=== PATIENT | male | born 1990 | race Caucasian/White ===

== ENCOUNTER 2021-08-29 12:38 | Inpatient (IN) | payer MEDICAID, OTHER, SELFPAY ==
--- NOTE | ~2021-08-29 | CT_ITS ---
EXAMINATION: CT CHEST, ABDOMEN AND PELVIS WITHOUT CONTRAST CLINICAL INFORMATION: Chest pain, abdominal pain and tachycardia. COMPARISON: CT abdomen/pelvis dated from 12/17/2018. TECHNIQUE: Multidetector volumetric imaging was performed from the thoracic inlet through the pubic symphysis without intravenous contrast. Sagittal and coronal reformatted images were obtained on the technologist's workstation. This CT examination was performed using dose optimization techniques as appropriate, variously including the following: *Automated exposure control *Adjustment of mA and/or kV according to patient size (this includes techniques or standardized protocols for targeted exams where dose is matched to indication/reason for exam; i.e. extremities or head) *Use of iterative reconstruction technique DLP: 659 mGy-cm FINDINGS: CHEST: Lung: There is an indeterminate 0.5 cm groundglass nodule in the left upper lobe (7:155). There are also subtle groundglass opacities to the left of the anterior mediastinum reflection 8 the left upper lobe, for example as identified on images 211 and 221 of series 7, possibly related with subsegmental atelectasis. Otherwise, the lungs are clear. Mediastinum: Normal heart size. No pericardial effusion. No mediastinal or hilar lymphadenopathy. Normal appearance of the thyroid gland. Pericardium/Pleura: No significant effusion. No pleural mass or thickening. Chest Wall/Axilla: Mild bilateral gynecomastia. ABDOMEN/PELVIS: Peritoneal Space:No significant free air or free fluid identified. Liver, Gallbladder, Biliary Tree: There is decreased hepatic parenchymal attenuation most consistent with hepatic steatosis. Otherwise, the noncontrast liver is normal in size and shape without focal lesions. The gallbladder is unremarkable with no evidence of radiopaque gallstones, gallbladder wall thickening, or obvious pericholecystic inflammatory changes. Pancreas: No focal abnormalities. The main pancreatic duct is nondilated. There is no peripancreatic free fluid or fat stranding. Spleen: Unremarkable. Adrenal Glands: Unremarkable. Kidneys and Ureters: The kidneys are normal in size, shape, and attenuation. No hydronephrosis, hydroureter, or calculi seen. No perinephric stranding. Bladder: Partially under distended without focal abnormalities or significant perivesical fat stranding. Gastrointestinal Tract: There is wall thickening of the lower esophagus. The stomach and the small bowel are nondilated. Normal appendix. No active inflammatory bowel changes or evidence of bowel obstruction. Abdominal Wall: Small bilateral fat-containing internal hernias. Lymphovascular Structures: A few prominent periportal lymph nodes measuring up to 0.7 cm in maximum short axis are indeterminate but likely reactive in the setting of hepatic steatosis. There is also a prominent periesophageal lymph node measuring 0.8 cm on image 48 of series 5. There is no lymphadenopathy by size criteria. The aorta is unremarkable.. Pelvic Viscera: Unremarkable. Osseus Structures: No acute or aggressive osseous abnormalities. CT/CT abdomen pelvis wo con IMPRESSION: There is wall thickening of the lower esophagus with a prominent periesophageal lymph node. Correlation with esophagitis or reflux disease should be obtained and if indicated further evaluation with an upper enteroscopy could be obtained. Hepatic steatosis. Indeterminate groundglass nodule in the left upper lobe. Patient is younger than 35 years old therefore Fleischner criteria do not apply. If clinically indicated, consider a short-term follow-up to ensure resolution of this finding.
[2021-08-29 12:41] VITALS: BP 144/93; PULSE 150; RESP 22; TEMP 36.8; O2SAT 93
--- NOTE | 2021-08-29 12:52 | ED.ALCOHOL ---
HPI - Alcohol General Chief Complaint: ETOH/Substance Use <THO Solano - Last Filed: 08/29/21 21:45> Stated Complaint: ETOH USE, HIGH BP 170/110, HIGH HR 160 PER EMS <THO Solano - Last Filed: 08/29/21 21:45> Time Seen by Provider: 08/29/21 12:48 <THO Solano - Last Filed: 08/29/21 21:45> Source: patient <THO Solano - Last Filed: 08/29/21 21:45> Mode of arrival: EMS <THO Solano - Last Filed: 08/29/21 21:45> Limitations: other (intoxicated poor historian.) <THO Solano - Last Filed: 08/29/21 21:45> History of Present Illness HPI narrative: This is a 31-year-old male past medical history significant for alcohol use with order with history of alcohol withdrawal seizures presenting to the emergency department with acute alcohol intoxication. According to EMS patient was found with a pt of vodka at his side, he was drinking. Patient is unable to tell us how much he is drink, he tells me he drinks every day until he passes out, he usually drinks hard liquor not beer. He tells me is trying to stop drinking, he is tearful. He has no complaints at this time other than he feels like his heart is racing. Patient does 9 I's suicidal ideation and homicidal ideation. He denies visual, auditory and tactile hallucinations. Denies chest pain, shortness of breath, fevers, chills, nausea, vomiting, abdominal pain, weakness, vision changes, headache . <THO Solano - Last Filed: 08/29/21 21:45> MD complaint: alcohol intoxication, alcohol dependence and desires rehab <THO Solano - Last Filed: 08/29/21 21:45> Last drink: Unknown <THO Solano - Last Filed: 08/29/21 21:45> Chronic alcohol use: Yes <THO Solano - Last Filed: 08/29/21 21:45> Previous visits for alcohol intoxication: Yes <THO Solano Last Filed: 08/29/21 21:45> Recent trauma: No <THO Solano Last Filed: 08/29/21 21:45> Associated symptoms: other (palpiations ) <THO Solano Last Filed: 08/29/21 21:45> Treatments prior to arrival: none <THO Solano Last Filed: 08/29/21 21:45> Related Data Home Medications: Home Medications Medication Instructions Recorded Confirmed escitalopram oxalate 10 mg tablet 1 tab PO DAILY 08/29/21 08/29/21 gabapentin 100 mg capsule 1 cap PO TID 08/29/21 08/29/21 hydroxyzine pamoate 50 mg capsule 1 cap PO TID 08/29/21 08/29/21 losartan 25 mg tablet 1 tab PO DAILY 08/29/21 08/29/21 metoprolol succinate 50 mg 1 tab PO DAILY 08/29/21 08/29/21 tablet,extended release 24 hr nicotine 21 mg/24 hr daily 1 patch TOPICAL DAILY 08/29/21 08/29/21 transdermal patch pantoprazole 40 mg tablet,delayed 1 tab PO BID 08/29/21 08/29/21 release <TOH Solano Last Filed: 08/29/21 21:45> Allergies/Adverse Reactions: Allergies Allergy/AdvReac Type Severity Reaction Status Date / Time oxycodone [OXYCODONE] Allergy Unknown RASH Verified 08/29/21 19:06 Seasonale Allergy Unknown Sneezing Uncoded 08/29/21 19:06 <THO Solano Last Filed: 08/29/21 21:45> Review of Systems Review of Systems: Constitutional : No Fever, No Chills ENT/Mouth : No sore throat, No Rhinorrhea Eyes: No Eye Pain, No Swelling, No Redness Cardiovascular : No Chest Pain, No SOB, + palpitations Respiratory : No Cough, No Sputum Gastrointestinal : No Nausea, No Vomiting, No Diarrhea, No abdominal Pain Genitourinary : No Dysuria, No Hematuria Musculoskeletal : No joint pain, No Myalgias, No Joint Swelling Skin : No Skin Lesions, No rash Neuro : No Weakness, No Numbness Psych : No Anxiety, No Depression, No SI/HI/AH/VH Heme/Lymph: No Bruising, No Bleeding Endocrine : No Polyuria, No Polydipsia All other systems reviewed and are negative <THO Solano - Last Filed: 08/29/21 21:45> Yes all other systems are reviewed and are negative <THO Solano - Last Filed: 08/29/21 21:45> FORMERLY [facility], [facility] Past Medical History Attestation statement: The following information was validated with the patient. <THO Solano - Last Filed: 08/29/21 21:45> Source: old records reviewed and nursing notes reviewed <THO Solano - Last Filed: 08/29/21 21:45> Medical History: Medical History (Updated 08/29/21 @ 20:14 by THO Solano) Congestive cardiomyopathy <THO Solano - Last Filed: 08/29/21 21:45> Social History Social History: Social History Advance Directives: No Advance Directives Information Provided: Yes <THO Solano - Last Filed: 08/29/21 21:45> Physical Exam Vital Signs: Vital Signs: Last Vital Signs Temp 98.4 F 08/29/21 21:47 Pulse 126 H 08/29/21 21:47 Resp 20 08/29/21 21:47 BP 120/70 08/29/21 21:47 Pulse Ox 94 08/29/21 21:47 BMI result Body Mass Index 29.2 Hypertension, tachypnea and tachycardia noted. Likely secondary to acute alcohol intoxication <THO Solano - Last Filed: 08/29/21 21:45> Vital Signs: Last Vital Signs Temp 98.4 F 08/29/21 21:47 Pulse 126 H 08/29/21 21:47 Resp 20 08/29/21 21:47 BP 120/70 08/29/21 21:47 Pulse Ox 94 08/29/21 21:47 BMI result Body Mass Index 29.2 <Rigoberto Girard MD - Last Filed: 08/29/21 22:07> Appearance: Alert.? Oriented X3.? No acute distress.? Patient appears anxious, answering questions slowly, unable to elaborate on my questions. Only answering yes or no questions. Head: Normocephalic, atraumatic, no step-offs or deformities Eyes: Pupils equal, round and reactive to light.? ENT: Pharynx normal.? Tongue with fasciculations Neck: Normal inspection.? Neck supple.? CVS: Normal heart rate and rhythm.? Pulses normal.? Respiratory: No respiratory distress.? Breath sounds normal.? Abdomen: Soft and nontender.? Skin: Skin warm and dry.? Normal skin color.? Normal skin turgor.? Extremities: No lower extremity edema.? No calf ttp. 5/5 strength to bilateral upper and lower extremities. Bilateral upper extremities with a resting tremor. Back: No midline tenderness, no C-spine tenderness, full range of motion, no CVA tenderness bilaterally Neuro: Oriented X 3.? No motor deficit.? No sensory deficit. Patient ambulating with an unsteady gait. <THO Solano - Last Filed: 08/29/21 21:45> Course Reevaluation(s) Reevaluation #1: Phenobarb protocol ordered. <THO Solano Last Filed: 08/29/21 21:45> Time: 16:47 <THO Solano - Last Filed: 08/29/21 21:45> Reevaluation #2: Spoke to curb attendant Dr. Headley who states that there is a normal compensated gas. Likely a mixed metabolic acidosis and metabolic alkalosis. Patient now tells staff that he was vomiting however, he has not vomited here in the emergency department. He also recommends CT of abdomen, chest and pelvis. Added lactic, lipase and serum osms. He did a bedside echo that shows patients EF to be reduced around 35-40%, patient myopathic. Patient now states that he has not been taking his blood pressure medicine. Earlier he told me he was. Lactic 3.3 - likely secondary to alcohol abuse/withdraw. Patient receiving fluids Lipase elevated,could be secondary to alcohol abuse. Patient now reports abdominal pain RUQ likely hepatitis. <THO Solano - Last Filed: 08/29/21 21:45> Time: 18:08 <THO Solano - Last Filed: 08/29/21 21:45> Reevaluation #3: I spent 60 minutes of critical care, with interventions, assessments, speaking to patient, consultants, and family. Patient with alcohol withdrawal and now large osmolar gap, discussed with poison control will transfer to [facility] for renal consult and possible fomiprazole <Rigoberto Girard MD - Last Filed: 08/29/21 22:07> Time: 18:46 <Rigoberto Girard MD - Last Filed: 08/29/21 22:07> Additional Reevaluation(s): 1899 Spoke to poison Control who tell me that they cannot rule out for certain that this is a toxic alcohol ingestion, still on the diagnosis however on likely. They recommend transfer to a center where patient can receive emergent hemodialysis. At this time they are not recommending fomiprazole. They recommend transferring the patient out to a tertiary facility. They also recommend obtaining an ethanol glycol level and ethanol level. These labs will be obtained. I will transfer patient out. Spoke to the curb attendant about this case who also feels more comfortable if patient is transferred to a different facility as this is likely an ingestion of a toxic alcohol. 1923 Reached out to [facility] for transfer, [facility] tells me that they are closed transfers. Call out to [facility] closed to transfers placed on a wait list. Will reach out to [facility] [address] [facility] closed to transfers, will call [facility]. [address] [facility] close to transfers unless it is a STEMI, trauma or peds. I will try [facility] closed for transfer. [facility]. [facility] said closed to transfers. Will reach out to [facility] closed to transfer.Will call [facility] 2005 [facility] said no, closed to transfer 2044 Spoke to who thinks this is unlikely a toxic ingestion. Javy a Lactic Acidosis and Metabolic Alkalosis combined. A nephro consult has been put in. Patient 2123 Per orders of an admit order for ICU will be put in. If patients vitals, labs and presentation improves patient could be evaluated for hospital admission not ICU, however only if significant improvement is noted. Although unlikely. At this time patient tachycardic, and tremulous would like 75 mg of phenobarbital at this time. Have spoken to nursing lathing supervisor, clinical cordinator, ICU PA and Dr. Girard has spoken to who also feels like this patient is not appropriate for the floor. [address] to Dr. Hamlin. Pending CBC,CMP,BNP,VBG,Lactic. Methanol and Ethylene glycol two send out labs peding (Send outs to [facility]) <THO Solano - Last Filed: 08/29/21 21:45> Consultations Consultation #1: still in withdrawal will write for more IV phenobarbital <Rigoberto Girard MD - Last Filed: 08/29/21 22:07> Time: 22:07 <Rigoberto Girard MD - Last Filed: 08/29/21 22:07> MDM - Alcohol MDM Narrative Medical decision making narrative: 1250 This is a 31-year-old male past medical history significant for alcohol use disorder with history of alcohol withdrawal seizures and HTN presenting to the emergency department with acute alcohol intoxication. Patient tells me he is having palpitations but has no other complaints at this time. Patient wants to stop drinking unable to tell me how much she drinks on daily basis. Tells me he drinks every day, hard liquor, until he falls asleep. No visual, auditory or tactile hallucinations. No SI or HI. Physical examination significant for resting tremors to bilateral upper extremities, asterixis of the tongue, regular rapid rhythm noted. Lungs are clear. Abdomen soft nontender nondistended. Injected sclera. Patient is tearful, and anxious at this time. Plan at this time is to administer IV phenobarbital 75 mg, obtain basic labs, ethanol, urine drug tox, UA, EKG since patient is experiencing palpitations. <THO Solano - Last Filed: 08/29/21 21:45> Medical Records Attestation: I reviewed the patient's medical records. <THO Solano - Last Filed: 08/29/21 21:45> Lab Data Attestation: I reviewed the patient's lab results. <THO Solano - Last Filed: 08/29/21 21:45> Result diagrams: : 08/29/21 13:29 08/29/21 13:29 <THO Solano - Last Filed: 08/29/21 21:45> Labs: Lab Results 08/29/21 08/29/21 08/29/21 Range/Units 13:29 13:29 13:29 WBC 5.5 (4.8-10.8) X10*3/uL RBC 5.55 (4.60-5.80) X10*6/uL Hgb 17.1 (14.0-18.0) g/dl Hct 51.0 (42.0-52.0) % MCV 91.9 (80.0-98.0) fL MCH 30.8 (27.0-33.0) pg MCHC 33.5 (31.0-36.0) g/dl RDW 12.9 (11.0-16.0) % Plt Count 347 (160-400) X10*3/uL MPV 8.7 L (9.4-12.4) fL Immature Gran % (Auto) 0.2 (0.0-0.4) % Neut % (Auto) 69.6 (45-73) % Lymph % (Auto) 22.1 (20-40) % Richardson % (Auto) 6.9 (2-11) % Eos % (Auto) 0.5 (0-4) % Baso % (Auto) 0.7 (0-2) % Lymph # (Auto) 1.2 (1.2-4.9) X10*3/uL Richardson # (Auto) 0.4 (0.1-1.2) X10*3/uL Eos # (Auto) 0.0 (0.0-0.4) X10*3/uL Baso # (Auto) 0.0 (0.0-0.2) X10*3/uL Abs Immat Gran (auto) 0.01 (0.00-0.03) X10*3/uL Absolute Neuts (auto) 3.8 (2.0-8.3) x10*3/uL Absolute Nucleated RBC 0.000 (0.0-0.012) X10*3/uL Nucleated RBC % (auto) 0.0 (0.0-0.2) /100WBC VBG pH (7.32-7.43) VBG pCO2 mmHg VBG pO2 mmHg VBG HCO3 (22-26) mmol/L VBG O2 Saturation % VBG Base Excess mmol/L Sodium 141 (135-145) mmol/L Potassium 4.5 (3.3-5.1) mmol/L Chloride 100 (96-108) mmol/L Carbon Dioxide 19 L (22-29) mmol/L Anion Gap 27 H (12-20) BUN 8 L (9-16) mg/dL Creatinine 0.98 (0.5-1.4) mg/dL Estim Creat Clear Calc 126.2 Estimated GFR > 60 Random Glucose 150 H (60-115) mg/dL Osmolality (281-305) mosm/kg Lactic Acid (0.5-2.0) mmol/L Calcium 9.0 (8.4-10.2) mg/dL Magnesium 1.9 (1.6-2.6) mg/dL Total Bilirubin 0.5 (0.0-1.0) mg/dL AST 163 H (5-37) U/L ALT 112 H (0-40) U/L Alkaline Phosphatase 69 (39-117) U/L Total Protein 7.7 (6.5-8.0) g/dL Albumin 4.2 (3.5-5.0) g/dL Lipase 133 H (8-78) U/L Urine Color Urine Appearance Urine pH (5.0-8.0) Ur Specific Stirum (1.005-1.025) Urine Protein (NEG-TRACE) MG/DL Urine Glucose (UA) (NEG) MG/DL Urine Ketones (NEG) MG/DL Urine Blood (NEG) Urine Nitrite (NEG) Ur Leukocyte Esterase (NEG) Urine RBC (0) /HPF Urine WBC (0-4) /HPF Ur Squamous Epith Cells /LPF Urine Bacteria /LPF Salicylates (15-30) mg/dL Urine Opiates Screen (Not Detect) Urine Fentanyl Screen (Not Detect) Acetaminophen (<30) mcg/mL Ur Barbiturates Screen (Not Detect) Ur Phencyclidine Scrn (Not Detect) Ur Amphetamines Screen (Not Detect) U Benzodiazepines Scrn (Not Detect) Urine Cocaine Screen (Not Detect) U Marijuana (THC) Screen (Not Detect) Ethyl Alcohol 487 H* mg/dL COVID-19 (NAT) (Negative) COVID-19 Clin Com 08/29/21 08/29/21 08/29/21 Range/Units 13:29 13:30 17:29 WBC (4.8-10.8) X10*3/uL RBC (4.60-5.80) X10*6/uL Hgb (14.0-18.0) g/dl Hct (42.0-52.0) % MCV (80.0-98.0) fL MCH (27.0-33.0) pg MCHC (31.0-36.0) g/dl RDW (11.0-16.0) % Plt Count (160-400) X10*3/uL MPV (9.4-12.4) fL Immature Gran % (Auto) (0.0-0.4) % Neut % (Auto) (45-73) % Lymph % (Auto) (20-40) % Richardson % (Auto) (2-11) % Eos % (Auto) (0-4) % Baso % (Auto) (0-2) % Lymph # (Auto) (1.2-4.9) X10*3/uL Richardson # (Auto) (0.1-1.2) X10*3/uL Eos # (Auto) (0.0-0.4) X10*3/uL Baso # (Auto) (0.0-0.2) X10*3/uL Abs Immat Gran (auto) (0.00-0.03) X10*3/uL Absolute Neuts (auto) (2.0-8.3) x10*3/uL Absolute Nucleated RBC (0.0-0.012) X10*3/uL Nucleated RBC % (auto) (0.0-0.2) /100WBC VBG pH (7.32-7.43) VBG pCO2 mmHg VBG pO2 mmHg VBG HCO3 (22-26) mmol/L VBG O2 Saturation % VBG Base Excess mmol/L Sodium (135-145) mmol/L Potassium (3.3-5.1) mmol/L Chloride (96-108) mmol/L Carbon Dioxide (22-29) mmol/L Anion Gap (12-20) BUN (9-16) mg/dL Creatinine (0.5-1.4) mg/dL Estim Creat Clear Calc Estimated GFR Random Glucose (60-115) mg/dL Osmolality 390 H (281-305) mosm/kg Lactic Acid 3.3 H* (0.5-2.0) mmol/L Calcium (8.4-10.2) mg/dL Magnesium (1.6-2.6) mg/dL Total Bilirubin (0.0-1.0) mg/dL AST (5-37) U/L ALT (0-40) U/L Alkaline Phosphatase (39-117) U/L Total Protein (6.5-8.0) g/dL Albumin (3.5-5.0) g/dL Lipase (8-78) U/L Urine Color Urine Appearance Urine pH (5.0-8.0) Ur Specific Stirum (1.005-1.025) Urine Protein (NEG-TRACE) MG/DL Urine Glucose (UA) (NEG) MG/DL Urine Ketones (NEG) MG/DL Urine Blood (NEG) Urine Nitrite (NEG) Ur Leukocyte Esterase (NEG) Urine RBC (0) /HPF Urine WBC (0-4) /HPF Ur Squamous Epith Cells /LPF Urine Bacteria /LPF Salicylates (15-30) mg/dL Urine Opiates Screen (Not Detect) Urine Fentanyl Screen (Not Detect) Acetaminophen (<30) mcg/mL Ur Barbiturates Screen (Not Detect) Ur Phencyclidine Scrn (Not Detect) Ur Amphetamines Screen (Not Detect) U Benzodiazepines Scrn (Not Detect) Urine Cocaine Screen (Not Detect) U Marijuana (THC) Screen (Not Detect) Ethyl Alcohol mg/dL COVID-19 (NAT) Negative (Negative) COVID-19 Clin Com See Note 08/29/21 08/29/21 08/29/21 Range/Units 17:35 18:09 18:09 WBC (4.8-10.8) X10*3/uL RBC (4.60-5.80) X10*6/uL Hgb (14.0-18.0) g/dl Hct (42.0-52.0) % MCV (80.0-98.0) fL MCH (27.0-33.0) pg MCHC (31.0-36.0) g/dl RDW (11.0-16.0) % Plt Count (160-400) X10*3/uL MPV (9.4-12.4) fL Immature Gran % (Auto) (0.0-0.4) % Neut % (Auto) (45-73) % Lymph % (Auto) (20-40) % Richardson % (Auto) (2-11) % Eos % (Auto) (0-4) % Baso % (Auto) (0-2) % Lymph # (Auto) (1.2-4.9) X10*3/uL Richardson # (Auto) (0.1-1.2) X10*3/uL Eos # (Auto) (0.0-0.4) X10*3/uL Baso # (Auto) (0.0-0.2) X10*3/uL Abs Immat Gran (auto) (0.00-0.03) X10*3/uL Absolute Neuts (auto) (2.0-8.3) x10*3/uL Absolute Nucleated RBC (0.0-0.012) X10*3/uL Nucleated RBC % (auto) (0.0-0.2) /100WBC VBG pH 7.40 (7.32-7.43) VBG pCO2 41 mmHg VBG pO2 47 mmHg VBG HCO3 26 (22-26) mmol/L VBG O2 Saturation 68.0 % VBG Base Excess 1.5 mmol/L Sodium (135-145) mmol/L Potassium (3.3-5.1) mmol/L Chloride (96-108) mmol/L Carbon Dioxide (22-29) mmol/L Anion Gap (12-20) BUN (9-16) mg/dL Creatinine (0.5-1.4) mg/dL Estim Creat Clear Calc Estimated GFR Random Glucose (60-115) mg/dL Osmolality (281-305) mosm/kg Lactic Acid (0.5-2.0) mmol/L Calcium (8.4-10.2) mg/dL Magnesium (1.6-2.6) mg/dL Total Bilirubin (0.0-1.0) mg/dL AST (5-37) U/L ALT (0-40) U/L Alkaline Phosphatase (39-117) U/L Total Protein (6.5-8.0) g/dL Albumin (3.5-5.0) g/dL Lipase (8-78) U/L Urine Color YELLOW Urine Appearance CLEAR Urine pH 6.0 (5.0-8.0) Ur Specific Stirum 1.025 (1.005-1.025) Urine Protein 1+ H (NEG-TRACE) MG/DL Urine Glucose (UA) 250 H (NEG) MG/DL Urine Ketones >=80 (NEG) MG/DL Urine Blood TRACE (NEG) Urine Nitrite NEG (NEG) Ur Leukocyte Esterase NEG (NEG) Urine RBC 0 (0) /HPF Urine WBC 0 (0-4) /HPF Ur Squamous Epith Cells NONE /LPF Urine Bacteria TRACE /LPF Salicylates (15-30) mg/dL Urine Opiates Screen Not Detected (Not Detect) Urine Fentanyl Screen Not Detected (Not Detect) Acetaminophen (<30) mcg/mL Ur Barbiturates Screen POSITIVE H (Not Detect) Ur Phencyclidine Scrn Not Detected (Not Detect) Ur Amphetamines Screen Not Detected (Not Detect) U Benzodiazepines Scrn Not Detected (Not Detect) Urine Cocaine Screen Not Detected (Not Detect) U Marijuana (THC) Screen Not Detected (Not Detect) Ethyl Alcohol mg/dL COVID-19 (NAT) (Negative) COVID-19 Clin Com 08/29/21 08/29/21 Range/Units 19:27 21:50 WBC (4.8-10.8) X10*3/uL RBC (4.60-5.80) X10*6/uL Hgb (14.0-18.0) g/dl Hct (42.0-52.0) % MCV (80.0-98.0) fL MCH (27.0-33.0) pg MCHC (31.0-36.0) g/dl RDW (11.0-16.0) % Plt Count (160-400) X10*3/uL MPV (9.4-12.4) fL Immature Gran % (Auto) (0.0-0.4) % Neut % (Auto) (45-73) % Lymph % (Auto) (20-40) % Richardson % (Auto) (2-11) % Eos % (Auto) (0-4) % Baso % (Auto) (0-2) % Lymph # (Auto) (1.2-4.9) X10*3/uL Richardson # (Auto) (0.1-1.2) X10*3/uL Eos # (Auto) (0.0-0.4) X10*3/uL Baso # (Auto) (0.0-0.2) X10*3/uL Abs Immat Gran (auto) (0.00-0.03) X10*3/uL Absolute Neuts (auto) (2.0-8.3) x10*3/uL Absolute Nucleated RBC (0.0-0.012) X10*3/uL Nucleated RBC % (auto) (0.0-0.2) /100WBC VBG pH 7.53 H (7.32-7.43) VBG pCO2 35 mmHg VBG pO2 68 mmHg VBG HCO3 30 H (22-26) mmol/L VBG O2 Saturation 92.0 % VBG Base Excess 7.4 mmol/L Sodium (135-145) mmol/L Potassium (3.3-5.1) mmol/L Chloride (96-108) mmol/L Carbon Dioxide (22-29) mmol/L Anion Gap (12-20) BUN (9-16) mg/dL Creatinine (0.5-1.4) mg/dL Estim Creat Clear Calc Estimated GFR Random Glucose (60-115) mg/dL Osmolality (281-305) mosm/kg Lactic Acid (0.5-2.0) mmol/L Calcium (8.4-10.2) mg/dL Magnesium (1.6-2.6) mg/dL Total Bilirubin (0.0-1.0) mg/dL AST (5-37) U/L ALT (0-40) U/L Alkaline Phosphatase (39-117) U/L Total Protein (6.5-8.0) g/dL Albumin (3.5-5.0) g/dL Lipase (8-78) U/L Urine Color Urine Appearance Urine pH (5.0-8.0) Ur Specific Stirum (1.005-1.025) Urine Protein (NEG-TRACE) MG/DL Urine Glucose (UA) (NEG) MG/DL Urine Ketones (NEG) MG/DL Urine Blood (NEG) Urine Nitrite (NEG) Ur Leukocyte Esterase (NEG) Urine RBC (0) /HPF Urine WBC (0-4) /HPF Ur Squamous Epith Cells /LPF Urine Bacteria /LPF Salicylates < 5.0 L (15-30) mg/dL Urine Opiates Screen (Not Detect) Urine Fentanyl Screen (Not Detect) Acetaminophen < 1 (<30) mcg/mL Ur Barbiturates Screen (Not Detect) Ur Phencyclidine Scrn (Not Detect) Ur Amphetamines Screen (Not Detect) U Benzodiazepines Scrn (Not Detect) Urine Cocaine Screen (Not Detect) U Marijuana (THC) Screen (Not Detect) Ethyl Alcohol mg/dL COVID-19 (NAT) (Negative) COVID-19 Clin Com <THO Solano - Last Filed: 08/29/21 21:45> Lab Results 08/29/21 08/29/21 08/29/21 Range/Units 13:29 13:29 13:29 WBC 5.5 (4.8-10.8) X10*3/uL RBC 5.55 (4.60-5.80) X10*6/uL Hgb 17.1 (14.0-18.0) g/dl Hct 51.0 (42.0-52.0) % MCV 91.9 (80.0-98.0) fL MCH 30.8 (27.0-33.0) pg MCHC 33.5 (31.0-36.0) g/dl RDW 12.9 (11.0-16.0) % Plt Count 347 (160-400) X10*3/uL MPV 8.7 L (9.4-12.4) fL Immature Gran % (Auto) 0.2 (0.0-0.4) % Neut % (Auto) 69.6 (45-73) % Lymph % (Auto) 22.1 (20-40) % Richardson % (Auto) 6.9 (2-11) % Eos % (Auto) 0.5 (0-4) % Baso % (Auto) 0.7 (0-2) % Lymph # (Auto) 1.2 (1.2-4.9) X10*3/uL Richardson # (Auto) 0.4 (0.1-1.2) X10*3/uL Eos # (Auto) 0.0 (0.0-0.4) X10*3/uL Baso # (Auto) 0.0 (0.0-0.2) X10*3/uL Abs Immat Gran (auto) 0.01 (0.00-0.03) X10*3/uL Absolute Neuts (auto) 3.8 (2.0-8.3) x10*3/uL Absolute Nucleated RBC 0.000 (0.0-0.012) X10*3/uL Nucleated RBC % (auto) 0.0 (0.0-0.2) /100WBC VBG pH (7.32-7.43) VBG pCO2 mmHg VBG pO2 mmHg VBG HCO3 (22-26) mmol/L VBG O2 Saturation % VBG Base Excess mmol/L Sodium 141 (135-145) mmol/L Potassium 4.5 (3.3-5.1) mmol/L Chloride 100 (96-108) mmol/L Carbon Dioxide 19 L (22-29) mmol/L Anion Gap 27 H (12-20) BUN 8 L (9-16) mg/dL Creatinine 0.98 (0.5-1.4) mg/dL Estim Creat Clear Calc 126.2 Estimated GFR > 60 Random Glucose 150 H (60-115) mg/dL Osmolality (281-305) mosm/kg Lactic Acid (0.5-2.0) mmol/L Calcium 9.0 (8.4-10.2) mg/dL Magnesium 1.9 (1.6-2.6) mg/dL Total Bilirubin 0.5 (0.0-1.0) mg/dL AST 163 H (5-37) U/L ALT 112 H (0-40) U/L Alkaline Phosphatase 69 (39-117) U/L Total Protein 7.7 (6.5-8.0) g/dL Albumin 4.2 (3.5-5.0) g/dL Lipase 133 H (8-78) U/L Urine Color Urine Appearance Urine pH (5.0-8.0) Ur Specific Stirum (1.005-1.025) Urine Protein (NEG-TRACE) MG/DL Urine Glucose (UA) (NEG) MG/DL Urine Ketones (NEG) MG/DL Urine Blood (NEG) Urine Nitrite (NEG) Ur Leukocyte Esterase (NEG) Urine RBC (0) /HPF Urine WBC (0-4) /HPF Ur Squamous Epith Cells /LPF Urine Bacteria /LPF Salicylates (15-30) mg/dL Urine Opiates Screen (Not Detect) Urine Fentanyl Screen (Not Detect) Acetaminophen (<30) mcg/mL Ur Barbiturates Screen (Not Detect) Ur Phencyclidine Scrn (Not Detect) Ur Amphetamines Screen (Not Detect) U Benzodiazepines Scrn (Not Detect) Urine Cocaine Screen (Not Detect) U Marijuana (THC) Screen (Not Detect) Ethyl Alcohol 487 H* mg/dL COVID-19 (NAT) (Negative) COVID-19 Clin Com 08/29/21 08/29/21 08/29/21 Range/Units 13:29 13:30 17:29 WBC (4.8-10.8) X10*3/uL RBC (4.60-5.80) X10*6/uL Hgb (14.0-18.0) g/dl Hct (42.0-52.0) % MCV (80.0-98.0) fL MCH (27.0-33.0) pg MCHC (31.0-36.0) g/dl RDW (11.0-16.0) % Plt Count (160-400) X10*3/uL MPV (9.4-12.4) fL Immature Gran % (Auto) (0.0-0.4) % Neut % (Auto) (45-73) % Lymph % (Auto) (20-40) % Richardson % (Auto) (2-11) % Eos % (Auto) (0-4) % Baso % (Auto) (0-2) % Lymph # (Auto) (1.2-4.9) X10*3/uL Richardson # (Auto) (0.1-1.2) X10*3/uL Eos # (Auto) (0.0-0.4) X10*3/uL Baso # (Auto) (0.0-0.2) X10*3/uL Abs Immat Gran (auto) (0.00-0.03) X10*3/uL Absolute Neuts (auto) (2.0-8.3) x10*3/uL Absolute Nucleated RBC (0.0-0.012) X10*3/uL Nucleated RBC % (auto) (0.0-0.2) /100WBC VBG pH (7.32-7.43) VBG pCO2 mmHg VBG pO2 mmHg VBG HCO3 (22-26) mmol/L VBG O2 Saturation % VBG Base Excess mmol/L Sodium (135-145) mmol/L Potassium (3.3-5.1) mmol/L Chloride (96-108) mmol/L Carbon Dioxide (22-29) mmol/L Anion Gap (12-20) BUN (9-16) mg/dL Creatinine (0.5-1.4) mg/dL Estim Creat Clear Calc Estimated GFR Random Glucose (60-115) mg/dL Osmolality 390 H (281-305) mosm/kg Lactic Acid 3.3 H* (0.5-2.0) mmol/L Calcium (8.4-10.2) mg/dL Magnesium (1.6-2.6) mg/dL Total Bilirubin (0.0-1.0) mg/dL AST (5-37) U/L ALT (0-40) U/L Alkaline Phosphatase (39-117) U/L Total Protein (6.5-8.0) g/dL Albumin (3.5-5.0) g/dL Lipase (8-78) U/L Urine Color Urine Appearance Urine pH (5.0-8.0) Ur Specific [place] (1.005-1.025) Urine Protein (NEG-TRACE) MG/DL Urine Glucose (UA) (NEG) MG/DL Urine Ketones (NEG) MG/DL Urine Blood (NEG) Urine Nitrite (NEG) Ur Leukocyte Esterase (NEG) Urine RBC (0) /HPF Urine WBC (0-4) /HPF Ur Squamous Epith Cells /LPF Urine Bacteria /LPF Salicylates (15-30) mg/dL Urine Opiates Screen (Not Detect) Urine Fentanyl Screen (Not Detect) Acetaminophen (<30) mcg/mL Ur Barbiturates Screen (Not Detect) Ur Phencyclidine Scrn (Not Detect) Ur Amphetamines Screen (Not Detect) U Benzodiazepines Scrn (Not Detect) Urine Cocaine Screen (Not Detect) U Marijuana (THC) Screen (Not Detect) Ethyl Alcohol mg/dL COVID-19 (NAT) Negative (Negative) COVID-19 Clin Com See Note 08/29/21 08/29/21 08/29/21 Range/Units 17:35 18:09 18:09 WBC (4.8-10.8) X10*3/uL RBC (4.60-5.80) X10*6/uL Hgb (14.0-18.0) g/dl Hct (42.0-52.0) % MCV (80.0-98.0) fL MCH (27.0-33.0) pg MCHC (31.0-36.0) g/dl RDW (11.0-16.0) % Plt Count (160-400) X10*3/uL MPV (9.4-12.4) fL Immature Gran % (Auto) (0.0-0.4) % Neut % (Auto) (45-73) % Lymph % (Auto) (20-40) % [place] % (Auto) (2-11) % Eos % (Auto) (0-4) % Baso % (Auto) (0-2) % Lymph # (Auto) (1.2-4.9) X10*3/uL [place] # (Auto) (0.1-1.2) X10*3/uL Eos # (Auto) (0.0-0.4) X10*3/uL Baso # (Auto) (0.0-0.2) X10*3/uL Abs Immat Gran (auto) (0.00-0.03) X10*3/uL Absolute Neuts (auto) (2.0-8.3) x10*3/uL Absolute Nucleated RBC (0.0-0.012) X10*3/uL Nucleated RBC % (auto) (0.0-0.2) /100WBC VBG pH 7.40 (7.32-7.43) VBG pCO2 41 mmHg VBG pO2 47 mmHg VBG HCO3 26 (22-26) mmol/L VBG O2 Saturation 68.0 % VBG Base Excess 1.5 mmol/L Sodium (135-145) mmol/L Potassium (3.3-5.1) mmol/L Chloride (96-108) mmol/L Carbon Dioxide (22-29) mmol/L Anion Gap (12-20) BUN (9-16) mg/dL Creatinine (0.5-1.4) mg/dL Estim Creat Clear Calc Estimated GFR Random Glucose (60-115) mg/dL Osmolality (281-305) mosm/kg Lactic Acid (0.5-2.0) mmol/L Calcium (8.4-10.2) mg/dL Magnesium (1.6-2.6) mg/dL Total Bilirubin (0.0-1.0) mg/dL AST (5-37) U/L ALT (0-40) U/L Alkaline Phosphatase (39-117) U/L Total Protein (6.5-8.0) g/dL Albumin (3.5-5.0) g/dL Lipase (8-78) U/L Urine Color YELLOW Urine Appearance CLEAR Urine pH 6.0 (5.0-8.0) Ur Specific [place] 1.025 (1.005-1.025) Urine Protein 1+ H (NEG-TRACE) MG/DL Urine Glucose (UA) 250 H (NEG) MG/DL Urine Ketones >=80 (NEG) MG/DL Urine Blood TRACE (NEG) Urine Nitrite NEG (NEG) Ur Leukocyte Esterase NEG (NEG) Urine RBC 0 (0) /HPF Urine WBC 0 (0-4) /HPF Ur Squamous Epith Cells NONE /LPF Urine Bacteria TRACE /LPF Salicylates (15-30) mg/dL Urine Opiates Screen Not Detected (Not Detect) Urine Fentanyl Screen Not Detected (Not Detect) Acetaminophen (<30) mcg/mL Ur Barbiturates Screen POSITIVE H (Not Detect) Ur Phencyclidine Scrn Not Detected (Not Detect) Ur Amphetamines Screen Not Detected (Not Detect) U Benzodiazepines Scrn Not Detected (Not Detect) Urine Cocaine Screen Not Detected (Not Detect) U Marijuana (THC) Screen Not Detected (Not Detect) Ethyl Alcohol mg/dL COVID-19 (NAT) (Negative) COVID-19 Clin Com 08/29/21 08/29/21 Range/Units 19:27 21:50 WBC (4.8-10.8) X10*3/uL RBC (4.60-5.80) X10*6/uL Hgb (14.0-18.0) g/dl Hct (42.0-52.0) % MCV (80.0-98.0) fL MCH (27.0-33.0) pg MCHC (31.0-36.0) g/dl RDW (11.0-16.0) % Plt Count (160-400) X10*3/uL MPV (9.4-12.4) fL Immature Gran % (Auto) (0.0-0.4) % Neut % (Auto) (45-73) % Lymph % (Auto) (20-40) % [place] % (Auto) (2-11) % Eos % (Auto) (0-4) % Baso % (Auto) (0-2) % Lymph # (Auto) (1.2-4.9) X10*3/uL [place] # (Auto) (0.1-1.2) X10*3/uL Eos # (Auto) (0.0-0.4) X10*3/uL Baso # (Auto) (0.0-0.2) X10*3/uL Abs Immat Gran (auto) (0.00-0.03) X10*3/uL Absolute Neuts (auto) (2.0-8.3) x10*3/uL Absolute Nucleated RBC (0.0-0.012) X10*3/uL Nucleated RBC % (auto) (0.0-0.2) /100WBC VBG pH 7.53 H (7.32-7.43) VBG pCO2 35 mmHg VBG pO2 68 mmHg VBG HCO3 30 H (22-26) mmol/L VBG O2 Saturation 92.0 % VBG Base Excess 7.4 mmol/L Sodium (135-145) mmol/L Potassium (3.3-5.1) mmol/L Chloride (96-108) mmol/L Carbon Dioxide (22-29) mmol/L Anion Gap (12-20) BUN (9-16) mg/dL Creatinine (0.5-1.4) mg/dL Estim Creat Clear Calc Estimated GFR Random Glucose (60-115) mg/dL Osmolality (281-305) mosm/kg Lactic Acid (0.5-2.0) mmol/L Calcium (8.4-10.2) mg/dL Magnesium (1.6-2.6) mg/dL Total Bilirubin (0.0-1.0) mg/dL AST (5-37) U/L ALT (0-40) U/L Alkaline Phosphatase (39-117) U/L Total Protein (6.5-8.0) g/dL Albumin (3.5-5.0) g/dL Lipase (8-78) U/L Urine Color Urine Appearance Urine pH (5.0-8.0) Ur Specific [place] (1.005-1.025) Urine Protein (NEG-TRACE) MG/DL Urine Glucose (UA) (NEG) MG/DL Urine Ketones (NEG) MG/DL Urine Blood (NEG) Urine Nitrite (NEG) Ur Leukocyte Esterase (NEG) Urine RBC (0) /HPF Urine WBC (0-4) /HPF Ur Squamous Epith Cells /LPF Urine Bacteria /LPF Salicylates < 5.0 L (15-30) mg/dL Urine Opiates Screen (Not Detect) Urine Fentanyl Screen (Not Detect) Acetaminophen < 1 (<30) mcg/mL Ur Barbiturates Screen (Not Detect) Ur Phencyclidine Scrn (Not Detect) Ur Amphetamines Screen (Not Detect) U Benzodiazepines Scrn (Not Detect) Urine Cocaine Screen (Not Detect) U Marijuana (THC) Screen (Not Detect) Ethyl Alcohol mg/dL COVID-19 (NAT) (Negative) COVID-19 Clin Com <Rigoberto Girard MD - Last Filed: 08/29/21 22:07> ECG Data ECG #1: Attestation: I personally reviewed and interpreted this ECG as follows: <THO Solano - Last Filed: 08/29/21 21:45> ECG interpretation date: 08/29/21 <THO Solano - Last Filed: 08/29/21 21:45> ECG interpretation time: 13:10 <THO Solano - Last Filed: 08/29/21 21:45> Prior ECG tracings: available for review <THO Solano - Last Filed: 08/29/21 21:45> Interpretation: Ventricular rate of 126, OK normal, QRS normal, QT/QTC normal. EKG shows sinus tachycardia. No ST elevations or inversions. No acute ischemia. This significant changes when compared to previous on April 11, 2020 <THO Solano - Last Filed: 08/29/21 21:45> Critical Care Time Critical Care Time Critical Care Time: Yes <THO Solano - Last Filed: 08/29/21 21:45> Total Critical Care Time: 185 <THO Solano - Last Filed: 08/29/21 21:45> Attestation: I attest to this time spent taking care of the patient reviewing labs, imaging, speaking to intensive, speaking to hospitalist, evaluating the patient, history and physical exam, phenobarb protocol, speaking to multiple hospitals in the area trying to admit patient <THO Solano Last Filed: 08/29/21 21:45> Discharge Plan Discharge Clinical Impression: Alcoholic intoxication, Alcohol withdrawal syndrome, Hepatic steatosis, Compensated metabolic alkalosis, High serum osmolar gap, Alcoholic hepatitis <THO Solano - Last Filed: 08/29/21 21:45> Patient Disposition: Still a Patient <THO Solano Last Filed: 08/29/21 21:45> Prescriptions: No Action metoprolol succinate 50 mg tablet extended release 24 hr 1 tab PO DAILY RF: 0 hydroxyzine pamoate 50 mg capsule 1 cap PO TID RF: 0 pantoprazole 40 mg tablet,delayed release (DR/EC) 1 tab PO BID RF: 0 losartan 25 mg tablet 1 tab PO DAILY RF: 0 nicotine 21 mg/24 hr patch 24 hour 1 patch topical DAILY RF: 0 gabapentin 100 mg capsule 1 cap PO TID RF: 0 escitalopram oxalate 10 mg tablet 1 tab PO DAILY RF: 0 <THO Solano Last Filed: 08/29/21 21:45>
--- NOTE | 2021-08-29 12:53 | ECG_ITS ---
Test Reason : GENERAL MEDICAL Blood Pressure : / mmHG Vent. Rate : 126 BPM Atrial Rate : 126 BPM P-R Int : 140 ms QRS Dur : 104 ms QT Int : 336 ms P-R-T Axes : 047 -09 035 degrees QTc Int : 486 ms Sinus tachycardia Otherwise normal ECG When compared with ECG of 11-APR-2020 21:22, No significant change was found Referred By: Nitesh Umanzor Electronically Signed By:LATONYA CASIANO MD
[2021-08-29] MEDS: PHENobarbitaL sodium 65 MG/ML VIAL 75 MG IVPUSH ×4 (13:36→23:02)
[2021-08-29] MEDS: ondansetron HCL 4 MG/2 ML VIAL IVPUSH (13:36)
[2021-08-29 13:37] LABS: MANUAL DIFF FLAG NO
[2021-08-29] MEDS: 0.9 % Sodium Chloride 1,000 ML 999 ML IV (13:38)
[2021-08-29] MEDS: LORazepam 1 MG TABLET PO (13:38)
[2021-08-29 13:44] LABS: Basophils Percent Auto 0.7 % (0-2); Eosinophils Percent Auto 0.5 % (0-4); Hemoglobin 17.1 g/dl (14.0-18.0); Imm Gran Abs Auto 0.01 X10*3/uL (0.00-0.03); Imm Gran Pct Auto 0.2 % (0.0-0.4); Lymphocytes Absolute Auto 1.2 X10*3/uL (1.2-4.9); Lymphocytes Percent Auto 22.1 % (20-40); Mean Corpuscular HGB Conc 33.5 g/dl (31.0-36.0); Mean Corpuscular Hemoglobin 30.8 pg (27.0-33.0); Mean Corpuscular Volume 91.9 fL (80.0-98.0); Mean Platelet Volume 8.7 fL (9.4-12.4); Monocytes Absolute Auto 0.4 X10*3/uL (0.1-1.2); Monocytes Percent Auto 6.9 % (2-11); Neutrophils Absolute Auto 3.8 x10*3/uL (2.0-8.3); Neutrophils Percent Auto 69.6 % (45-73); Platelet Count 347 X10*3/uL (160-400); Red Blood Count 5.55 X10*6/uL (4.60-5.80); Red Cell Distribution Width 12.9 % (11.0-16.0); White Blood Count 5.5 X10*3/uL (4.8-10.8)
[2021-08-29 13:52] VITALS: BP 158/98; PULSE 152; RESP 16; TEMP 36.6; O2SAT 98; BMI 29.2
[2021-08-29 13:59] LABS: Ethanol 487 mg/dL
[2021-08-29 14:03] LABS: COVID-19 Test Negative (Negative); IDNOW Serial# 9DD0AD1C
[2021-08-29 14:07] LABS: Alanine Aminotransferase 112 U/L (0-40); Albumin Level 4.2 g/dL (3.5-5.0); Alkaline Phosphatase 69 U/L (39-117); Anion Gap 27 (12-20); Aspartate Amino Transferase 163 U/L (5-37); Bilirubin Total 0.5 mg/dL (0.0-1.0); Blood Urea Nitrogen 8 mg/dL (9-16); Carbon Dioxide 19 mmol/L (22-29); Chloride 100 mmol/L (96-108); Creatinine Clr Calc Pharmacy 126.2; Estimated Glomerular Filt Rate > 60; Glucose Random 150 mg/dL (60-115); Magnesium 1.9 mg/dL (1.6-2.6); Potassium 4.5 mmol/L (3.3-5.1); Sodium 141 mmol/L (135-145); Total Protein 7.7 g/dL (6.5-8.0)
[2021-08-29] MEDS: PHENobarbitaL sodium 130 MG/ML VIAL 301 MG IM (16:46)
--- NOTE | 2021-08-29 16:49 | PM.IMHP ---
History of Present Illness Date of Service: 08/29/21 Attending physician on admission: Frank Jacobo Chief Complaint: Alcohol withdrawl PMFSH Social History Advance Directives: No Advance Directives Information Provided: Yes Meds Allergies Allergy/AdvReac Type Severity Reaction Status Date / Time oxycodone [OXYCODONE] Allergy Unknown RASH Unverified 06/03/20 19:34 Seasonale Allergy Unknown Uncoded 01/06/19 00:00 Active Medications: Current Medications Folic Acid (Folic Acid 1 Mg Tablet) 1 mg PO DAILY [facility] Dextrose/Sodium Chloride (D5ns) 1,000 mls @ 250 mls/hr IVCONT .Q4H [facility] Medication (No Benzodiazepines) 1 each MISCELLANE DAILY [facility] Multivitamins/Vitamin C (Multivitamin Tablet) 1 tab PO DAILY [facility] Omeprazole (Omeprazole 20 Mg Capsule.Dr) 20 mg PO BID@0630,1630 [facility] Pharmacy Consult (Consult Rx Perform Med Rec) 1 each MISCELLANE ONCE PRN PRN Reason: Consult order Phenobarbital (Phenobarbital 30 Mg Tablet) 60 mg PO BID [facility] Stop: 08/31/21 21:01 Phenobarbital (Phenobarbital 30 Mg Tablet) 30 mg PO BID [facility] Stop: 09/02/21 21:01 Phenobarbital (Phenobarbital 30 Mg Tablet) 30 mg PO DAILY [facility] Stop: 09/04/21 09:01 Phenobarbital Sodium (Phenobarbital Sodium 130 Mg/Ml Vial) 301 mg IM ONCE ONE Stop: 08/29/21 17:01 Last Admin: 08/29/21 16:46 Dose: 301 mg Documented by: Phenobarbital Sodium (Phenobarbital Sodium 130 Mg/Ml Vial) 226 mg IM Q3H [facility] Stop: 08/29/21 23:01 Thiamine HCl (Thiamine Hcl 100 Mg Tablet) 100 mg PO DAILY [facility] Home Medications Medication Instructions Recorded Confirmed Last Taken Type escitalopram oxalate 10 mg tablet 1 tab PO DAILY 08/29/21 08/29/21 Unknown History folic acid 1 mg tablet 1 tab PO DAILY 08/29/21 Unknown History gabapentin 100 mg capsule 1 cap PO TID 08/29/21 Unknown History hydroxyzine pamoate 50 mg capsule 1 cap PO TID 08/29/21 Unknown History losartan 25 mg tablet 1 tab PO DAILY 08/29/21 Unknown History metoprolol succinate 50 mg 1 tab PO DAILY 08/29/21 Unknown History tablet,extended release 24 hr multivitamin 1 tab PO DAILY 08/29/21 Unknown History naltrexone 50 mg tablet 1 tab PO DAILY 08/29/21 Unknown History nicotine 21 mg/24 hr daily 1 patch TOPICAL DAILY 08/29/21 Unknown History transdermal patch pantoprazole 40 mg tablet,delayed 1 tab PO BID 08/29/21 Unknown History release thiamine HCl (vitamin B1) 100 mg 1 tab PO DAILY 08/29/21 Unknown History tablet (Vitamin B-1) Physical Exam Vital Signs and Narrative: Vital Signs: Last Vital Signs Temp 98 F 08/29/21 13:52 Pulse 152 H 08/29/21 13:52 Resp 16 08/29/21 13:52 BP 158/98 H 08/29/21 13:52 Pulse Ox 98 08/29/21 13:52 BMI result Body Mass Index 29.2 Results Labs CBC and Chem 7: 08/29/21 13:29 08/29/21 13:29 Labs: Laboratory Results - last 24 hr 08/29/21 08/29/21 08/29/21 13:29 13:29 13:29 MCV 91.9 MCH 30.8 MCHC 33.5 RDW 12.9 Plt Count 347 MPV 8.7 L Immature Gran % (Auto) 0.2 Neut % (Auto) 69.6 Lymph % (Auto) 22.1 [place] % (Auto) 6.9 Eos % (Auto) 0.5 Baso % (Auto) 0.7 Lymph # (Auto) 1.2 [place] # (Auto) 0.4 Eos # (Auto) 0.0 Baso # (Auto) 0.0 Abs Immat Gran (auto) 0.01 Absolute Neuts (auto) 3.8 Absolute Nucleated RBC 0.000 Nucleated RBC % (auto) 0.0 Anion Gap 27 H Estim Creat Clear Calc 126.2 Estimated GFR > 60 Random Glucose 150 H Calcium 9.0 Magnesium 1.9 Total Bilirubin 0.5 AST 163 H ALT 112 H Alkaline Phosphatase 69 Total Protein 7.7 Albumin 4.2 Ethyl Alcohol 487 H* COVID-19 (NAT) COVID-19 Clin Com 08/29/21 13:30 MCV MCH MCHC RDW Plt Count MPV Immature Gran % (Auto) Neut % (Auto) Lymph % (Auto) [place] % (Auto) Eos % (Auto) Baso % (Auto) Lymph # (Auto) [place] # (Auto) Eos # (Auto) Baso # (Auto) Abs Immat Gran (auto) Absolute Neuts (auto) Absolute Nucleated RBC Nucleated RBC % (auto) Anion Gap Estim Creat Clear Calc Estimated GFR Random Glucose Calcium Magnesium Total Bilirubin AST ALT Alkaline Phosphatase Total Protein Albumin Ethyl Alcohol COVID-19 (NAT) Negative COVID-19 Clin Com See Note Quality VTE VTE Risk Level:: Medical - moderate - high VTE Device Contraindication: Treatment Not Indicated VTE Drug Contraindication: N/A - Med Ordered
[2021-08-29 17:43] LABS: VBG Base Excess 1.5 mmol/L; VBG HCO3 26 mmol/L (22-26); VBG pCO2 41 mmHg; VBG pO2 47 mmHg
[2021-08-29 17:50] LABS: Venous Blood Gas Refer to POC result
[2021-08-29 18:07] LABS: Lipase 133 U/L (8-78)
[2021-08-29 18:09] LABS: Lactic Acid 3.3 mmol/L (0.5-2.0)
[2021-08-29 18:17] LABS: Osmolality, Serum 390 mosm/kg (281-305)
[2021-08-29 18:19] LABS: Appearance Urine CLEAR; Color Urine YELLOW; Glucose Urine UA 250 MG/DL (NEG); Leukocyte Esterase Urine NEG (NEG); Nitrite Urine NEG (NEG); Specific Gravity - Urine 1.025 (1.005-1.025); UACC Culture Trigger NO; Urine Blood TRACE (NEG); Urine Ketones >=80 MG/DL (NEG); Urine Protein 1+ MG/DL (NEG-TRACE)
[2021-08-29 18:33] LABS: Amphetamine Screen Urine Not Detected (Not Detect); Barbiturates, Urine POSITIVE (Not Detect); Benzodiazepines Screen Urine Not Detected (Not Detect); Cannabinoid Screen Urine Not Detected (Not Detect); Cocaine Screen Urine Not Detected (Not Detect); Fentanyl, urine Not Detected (Not Detect); Opiate Screen Urine Not Detected (Not Detect); Phencyclidine Screen Urine Not Detected (Not Detect)
--- NOTE | 2021-08-29 18:36 | P.CONCC_ITS ---
History of Present Illness Data of Consult Service Date: 08/29/21 Requesting physician: Rigoberto Girard Primary Care Provider: Unknown Physician HPI Reason for consult: severe alcohol intoxication 31-year-old chronic alcoholic otherwise unknown hypertensive and told once that he had had some heart failure issues and he notes that not only does he continue with heavy alcohol in imbibing today he said significant amount of just pure vodka but he also stopped his metoprolol presents with sinus tachycardia awake alert oriented but on again off again very tremulous clearly highly anxious but he was able to walk to the bathroom and back under his own power and is normotensive but from a metabolic standpoint he has a measured serum osmolality of 390 and an ethanol level of 487 and a osmol out gap given his sodium of 141 of about 100 and the ethanol level alone could account for this osmolality gap but he also has a positive anion gap mixed metabolic picture with both metabolic acidosis as well as metabolic alkalosis probably from the associated vomit ing and compensated pH but because of the mixture of metabolic acidosis with positive anion gap and that size osmolality gap we have to be concerned about the possibility of either methanol or ethylene glycol poisoning and the rest of his urine toxicology was negative the implication here is that he probably needs to have specific methanol and ethylene glycol level sent off to a poisoning lab but he probably needs a tertiary institution either for emergent hemodialysis or to initiate a fomepizole bedside echocardiogram shows mild diffuse hypokinesis with ejection fraction estimated at 35-40% but no primary valve or pericardial disease he was able to walk to and from the bathroom on his own remains oriented was not especially hyperbaric as you might expect with significant at metabolic acidosis drip so again even though the ethyl alcohol level at 487 mg% is enough to exactly account for the osmolal gap of over 100 and in in line with the positive anion gap metabolic acidosis which I believe is alcoholic ketoacidosis we still have to be concerned about a possible illicit alcohol but apparently our efforts failed adeno to have him transferred so we continued with IV hydration and just made sure that the alcohol level was diminishing that is anion gap was closing and that his serum bicarb was Ng improving and therefore we could say in retrospect that this was alcoholic ketoacidosis along with alcoholic hepatitis and pancreatitis and that it is all resolving just with our hydration and that this was not a poisoning on the basis of illicit alcohol Review of Systems Review of Systems: rest of the review of systems was negative and my focused examination indicates that the lactic acid was purely metabolic the no from his alcoholic intoxication and was not at all related to sepsis Yes all other syste ms are reviewed and are negative PMFSH Past Medical History Medical History Congestive cardiomyopathy Social History Social History (Updated 08/30/21 @ 04:57 by Wilfredo Hernandez MD) Alcohol intake: current Alcohol intake frequency: 3 or more drinks per day [place] type: hard liquor Substance Use Type: Marijuana Advance Directives: No Advance Directives Information Provided: Yes Meds Allergies Allergy/AdvReac Type Severity Reaction Status Date / Time oxycodone [OXYCODONE] Allergy Unknown RASH Verified 08/29/21 19:06 Seasonale Allergy Unknown Sneezing Uncoded 08/29/21 19:06 Active Medications: Current Medications Acetaminophen (Acetaminophen 325 Mg Tablet) 650 mg PO Q6H PRN PRN Reason: Pain, Mild (Pain Scale 1-3) Enoxaparin Sodium (Enoxaparin Sodium 40 Mg/0.4 Ml Syringe) 40 mg SUBCUT Q24H ON LICENSE OF [facility] Lactated Ringer's (Lr) 500 mls @ 500 mls/hr IVCONT .Q1H [facility] Stop: 08/29/21 18:55 Medication (No Benzodiazepines) 1 each MISCELLANE DAILY ON LICENSE OF [facility] Omeprazole (Omeprazole 20 Mg Capsule.Dr) 20 mg PO BID@0630,1630 ON LICENSE OF [facility] Ondansetron HCl (Ondansetron Hcl 4 Mg/2 Ml Vial) 4 mg IVPUSH Q8H PRN PRN Reason: Nausea and Vomiting Pharmacy Consult (Consult Rx Perform Med Rec) 1 each MISCELLANE ONCE PRN PRN Reason: Consult order Phenobarbital (Phenobarbital 30 Mg Tablet) 60 mg PO BID [facility] OF [facility] Stop: 08/31/21 21:01 Phenobarbital (Phenobarbital 30 Mg Tablet) 30 mg PO BID [facility] Stop: 09/02/21 21:01 Phenobarbital (Phenobarbital 30 Mg Tablet) 30 mg PO DAILY [facility] Stop: 09/04/21 09:01 Phenobarbital Sodium (Phenobarbital Sodium 130 Mg/Ml Vial) 226 mg IM Q3H ON LICENSE OF [facility] Stop: 08/29/21 23:01 Sodium Chloride (0.9 % Sodium Chloride Flush 3 Ml Syringe) 3 ml IVFLUSH QSHIFT ON LICENSE OF [facility] Home Medications Medication Instructions Recorded Confirmed Last Taken Type escitalopram oxalate 10 mg tablet 1 tab PO DAILY 08/29/21 08/29/21 08/26/21 History gabapentin 100 mg capsule 1 cap PO TID 08/29/21 08/29/21 08/29/21 History hydroxyzine pamoate 50 mg capsule 1 cap PO TID 08/29/21 08/29/21 08/22/21 History losartan 25 mg tablet 1 tab PO DAILY 08/29/21 08/29/21 08/29/21 History metoprolol succinate 50 mg 1 tab PO DAILY 08/29/21 08/29/21 08/29/21 History tablet,extended release 24 hr nicotine 21 mg/24 hr daily 1 patch TOPICAL DAILY 08/29/21 08/29/21 08/29/21 History transdermal patch pantoprazole 40 mg tablet,delayed 1 tab PO BID 08/29/21 08/29/21 08/29/21 His tory release Physical Exam Vital Signs: Vital Signs: Last Vital Signs Temp 98 F 08/29/21 13:52 Pulse 152 H 08/29/21 13:52 Resp 16 08/29/21 13:52 BP 158/98 H 08/29/21 13:52 Pulse Ox 98 08/29/21 13:52 BMI result Body Mass Index 29.2 he is normotensive in fact mildly hypertensive is sinus tachycardia without any acute changes and with a normal QT interval rates of 135-150 and this is after he has received 3 L of normal saline at neck veins are still flat he has adequate bilateral carotid upstrokes warm well perfused without acrocyanosis abdomen is soft with no guarding and no palpable organomegaly chest is clear no adventitious sounds cardiac exam without gallop and he has no peripheral edema and skin is intact Results Labs CBC & Chem 7: 08/30/21 05:55 08/30/21 04:45 Labs: Short CBC 08/29/21 Range/Units 13:29 WBC 5.5 (4.8-10.8) X10*3/uL Hgb 17.1 (14.0-18.0) g/dl Hct 51.0 (42.0-52.0) % Plt Count 347 (160-400) X10*3/uL BMP 08/29/21 13:29 Sodium 141 Potassium 4.5 Chloride 100 Carbon Dioxide 19 L BUN 8 L Creatinine 0.98 Calcium 9.0 Liver Function 08/29/21 Range/Units 13:29 Total Bilirubin 0.5 (0.0-1.0) mg/dL AST 163 H (5-37) U/L ALT 112 H (0-40) U/L Alkaline Phosphatase 69 (39-117) U/L Albumin 4.2 (3.5-5.0) g/dL Assessment and Plan (1) Alcoholic intoxication: Status: Acute (2) Metabolic acidosis with increased anion gap and accumulation of organic acids: Status: Acute (3) Compensated metabolic alkalosis: Status: Acute (4) High serum osmolar gap: Status: Acute (5) Congestive cardiomyopathy: Status: Acute (6) Alcoholic ketoacidosis: Status: Acute (7) Alcoholic hepatitis: Status: Acute (8) Acute pancreatitis: Status: Acute although the metabolic picture with the hepatitis and pancreatitis and the positive anion gap metabolic acidosis probably mixed with metabolic alkalosis from vomiting and positive osmolality gap can all be exactly explain by the ethanol intoxication at this level however the shear here with this combined issue and a gap that high is the possibility of use of and isopropyl alcohol or in ethylene glycol or methanol and I just feel that a tertiary institution with the toxicology lab that could at least give us a fairly immediate return on these level so that you do not have to perform inappropriate immediate dialysis would be more beneficial to this patient as we continue to hydrate I would obtain acetaminophen and salicylate levels and a renal consult and look for transfer to tertiary institution will need a Simpson catheter as well
[2021-08-29 18:53] LABS: Bacteria Urine TRACE /LPF; RBC Urine 0 /HPF (0); WBC Urine 0 /HPF (0-4)
[2021-08-29] MEDS: Enoxaparin Sodium 40 MG/0.4 ML SYRINGE SUBCUT (18:55)
[2021-08-29] MEDS: Omeprazole 20 MG CAPSULE.DR PO (18:56)
[2021-08-29] MEDS: Lactated Ringers 500 ML IVCONT (19:15)
[2021-08-29 19:20] VITALS: BP 128/87; PULSE 127; RESP 18; O2SAT 94
[2021-08-29 19:33] LABS: Reflex Lactate? Lactic Acid Added
[2021-08-29 19:54] LABS: Acetaminophen LAB < 1 mcg/mL (<30); Salicylate < 5.0 mg/dL (15-30)
[2021-08-29] MEDS: Lactated Ringers 1,000 ML 150 ML IVCONT (20:28)
[2021-08-29] MEDS: PHENobarbitaL sodium 130 MG/ML VIAL 226 MG IM (20:34)
[2021-08-29] MEDS: Thiamine HCL 100 MG in 0.9 % Sodium Chloride 100 ML 202 MG IV (20:36)
[2021-08-29 21:32] VITALS: BP 138/82; PULSE 129; RESP 15; TEMP 36.9; O2SAT 96
[2021-08-29 21:47] VITALS: BP 120/70; PULSE 126; RESP 20; TEMP 36.9; O2SAT 94
[2021-08-29 21:56] LABS: Venous Blood Gas Refer to POC result
[2021-08-29 21:57] LABS: VBG Base Excess 7.4 mmol/L; VBG HCO3 30 mmol/L (22-26); VBG pCO2 35 mmHg; VBG pH 7.53 (7.32-7.43); VBG pO2 68 mmHg
[2021-08-29] MEDS: Folic Acid 1 MG in 0.9 % Sodium Chloride 50 ML 100.4 MG IV (22:18)
[2021-08-29 22:25] LABS: Lactic Acid 3.2 mmol/L (0.5-2.0)
[2021-08-29 22:31] LABS: Alanine Aminotransferase 95 U/L (0-40); Albumin Level 3.8 g/dL (3.5-5.0); Alkaline Phosphatase 61 U/L (39-117); Anion Gap 19 (12-20); Aspartate Amino Transferase 124 U/L (5-37); B Type Natriuretic Peptide < 10 pg/mL (<100); Bilirubin Total 0.6 mg/dL (0.0-1.0); Blood Urea Nitrogen 7 mg/dL (9-16); Calcium 8.7 mg/dL (8.4-10.2); Carbon Dioxide 23 mmol/L (22-29); Chloride 101 mmol/L (96-108); Estimated Glomerular Filt Rate > 60; Glucose Random 157 mg/dL (60-115); Magnesium 1.7 mg/dL (1.6-2.6); Potassium 3.8 mmol/L (3.3-5.1); Sodium 139 mmol/L (135-145); Total Protein 6.5 g/dL (6.5-8.0)
[2021-08-29 22:41] LABS: Osmolality, Serum 348 mosm/kg (281-305)
[2021-08-29 23:49] LABS: Reflex Lactate? Lactic Acid Added
[2021-08-30] VITALS (10 sets, daily range): BP systolic 123–152; BP diastolic 84–99; PULSE 85–121; RESP 11–18; TEMP 36.4–36.9; O2SAT 94–99; BMI 29.1
[2021-08-30] MEDS: PHENobarbitaL sodium 65 MG/ML VIAL 75 MG IVPUSH (00:49)
[2021-08-30] MEDS: Lactated Ringers 1,000 ML 150 ML IVCONT ×3 (02:34→20:40)
[2021-08-30] MEDS: PHENobarbitaL sodium 130 MG/ML VIAL 226 MG IM (02:38)
[2021-08-30 02:56] LABS: MANUAL DIFF FLAG NO
[2021-08-30 02:57] LABS: Basophils Percent Auto 0.5 % (0-2); Eosinophils Absolute Auto 0.1 X10*3/uL (0.0-0.4); Eosinophils Percent Auto 0.7 % (0-4); Hematocrit 44.5 % (42.0-52.0); Hemoglobin 15.4 g/dl (14.0-18.0); Imm Gran Abs Auto 0.01 X10*3/uL (0.00-0.03); Imm Gran Pct Auto 0.1 % (0.0-0.4); Lymphocytes Absolute Auto 1.9 X10*3/uL (1.2-4.9); Lymphocytes Percent Auto 22.8 % (20-40); Mean Corpuscular HGB Conc 34.6 g/dl (31.0-36.0); Mean Corpuscular Hemoglobin 31.7 pg (27.0-33.0); Mean Corpuscular Volume 91.6 fL (80.0-98.0); Mean Platelet Volume 8.8 fL (9.4-12.4); Monocytes Absolute Auto 0.7 X10*3/uL (0.1-1.2); Monocytes Percent Auto 7.9 % (2-11); Neutrophils Absolute Auto 5.6 x10*3/uL (2.0-8.3); Platelet Count 287 X10*3/uL (160-400); Red Blood Count 4.86 X10*6/uL (4.60-5.80); Red Cell Distribution Width 12.7 % (11.0-16.0); White Blood Count 8.2 X10*3/uL (4.8-10.8)
[2021-08-30 03:08] LABS: ~Lactic Acid-LAB USE ONLY 2.5 mmol/L (0.5-2.0)
--- NOTE | 2021-08-30 04:44 | PM.IMHP ---
History of Present Illness Date of Service: 08/30/21 Chief Complaint: alcohol withdrawal 81-year-old male with past medical history of hypertension, and reported history of heart failure although patient is not forthcoming with too much information presents to the hospital with complaints of alcohol withdrawal. Patient is very tremulous, very anxious, and says that he is too sick to talk. He came in after drinking 1 L of vodka on feeling sick, he has been vomiting, denies any chest pain, no abdominal pain, he denies any urinary symptoms, denies any shortness of breath, but is very anxious and very tremulous. No fever or chills. No lower extremity edema. I cannot get more details from him as he says that he cannot talk much due to his withdrawals. on arrival to the ED patient's vitals are significant for a temp of 98.2?, heart rate of 150, respiratory rate of 22, blood pressure 140/93, satting 93% on room air, patient had multiple abnormal labs including and elevated anion gap as well as an serum osmolality of 390, at the time of presentation these labs are concerning for methanol toxicity, patient was attempted to be transferred to tertiary care unit for possible alcohol toxicity but due to other hospitals having no beds available, patient was treated and managed in the ED. His alcohol level was also found to be close to 500, the lactic acid of 3.2, on arrival his pH is 7.4 with a bicarb of 19 that has now improved to 23. patient was treated with phenobarb as well as IV fluids with improvement in his osmolality, gap, as well as lactic acid. Patient at this time is still extremely tremulous but clinically appears stable Review of Systems Review of Systems: Yes all other systems are reviewed and are negative [facility] Medical History Congestive cardiomyopathy Pertinent family history: Unable to obtain Social History (Updated 08/30/21 @ 04:57 by Wilfredo Hernandez MD) Alcohol intake: current Advance Directives: No Advance Directives Information Provided: Yes Meds Allergies Allergy/AdvReac Type Severity Reaction Status Date / Time oxycodone [OXYCODONE] Allergy Unknown RASH Verified 08/29/21 19:06 Seasonale Allergy Unknown Sneezing Uncoded 08/29/21 19:06 Active Medications: Current Medications Acetaminophen (Acetaminophen 325 Mg Tablet) 650 mg PO Q6H PRN PRN Reason: Pain, Mild (Pain Scale 1-3) Enoxaparin Sodium (Enoxaparin Sodium 40 Mg/0.4 Ml Syringe) 40 mg SUBCUT Q24H [facility] Last Admin: 08/29/21 18:55 Dose: 40 mg Documented by: Lactated Ringer's (Lr) 1,000 mls @ 150 mls/hr IVCONT .Q6H40M [facility] Last Admin: 08/30/21 02:34 Dose: 150 mls/hr Documented by: Medication (No Benzodiazepines) 1 each MISCELLANE DAILY [facility] Omeprazole (Omeprazole 20 Mg Capsule.Dr) 20 mg PO BID@0630,1630 [facility] Last Admin: 08/29/21 18:56 Dose: 20 mg Documented by: Ondansetron HCl (Ondansetron Hcl 4 Mg/2 Ml Vial) 4 mg IVPUSH Q8H PRN PRN Reason: Nausea and Vomiting Pharmacy Consult (Consult Rx Perform Med Rec) 1 each MISCELLANE ONCE PRN PRN Reason: Consult order Phenobarbital (Phenobarbital 30 Mg Tablet) 60 mg PO BID [facility] Stop: 08/31/21 21:01 Phenobarbital (Phenobarbital 30 Mg Tablet) 30 mg PO BID [facility] Stop: 09/02/21 21:01 Phenobarbital (Phenobarbital 30 Mg Tablet) 30 mg PO DAILY [facility] Stop: 09/04/21 09:01 Sodium Chloride (0.9 % Sodium Chloride Flush 3 Ml Syringe) 3 ml IVFLUSH QSHIFT [facility] Last Admin: 08/30/21 00:59 Dose: Not Given Documented by: Home Medications Medication Instructions Recorded Confirmed Last Taken Type escitalopram oxalate 10 mg tablet 1 tab PO DAILY 08/29/21 08/29/21 08/26/21 History gabapentin 100 mg capsule 1 cap PO TID 08/29/21 08/29/21 08/29/21 History hydroxyzine pamoate 50 mg capsule 1 cap PO TID 08/29/21 08/29/21 08/22/21 History losartan 25 mg tablet 1 tab PO DAILY 08/29/21 08/29/21 08/29/21 History metoprolol succinate 50 mg 1 tab PO DAILY 08/29/21 08/29/21 08/29/21 History tablet,extended release 24 hr nicotine 21 mg/24 hr daily 1 patch TOPICAL DAILY 08/29/21 08/29/21 08/29/21 History transdermal patch pantoprazole 40 mg tablet,delayed 1 tab PO BID 08/29/21 08/29/21 08/29/21 History release Physical Exam Vital Signs and Narrative: Vital Signs: Last Vital Signs Temp 98.4 F 08/29/21 21:47 Pulse 115 H 08/30/21 02:43 Resp 18 08/30/21 02:43 BP 150/98 H 08/30/21 02:43 Pulse Ox 95 08/30/21 02:43 BMI result Body Mass Index 29.2 Const: Other: very tremulous, alert and oriented, appears very ill General: cooperative Orientation/consciousness: patient oriented x3 Eyes: General: appearance normal, both eyes and all related structures Resp: Effort & Inspection: normal respiratory effort Cardio: Rate: regular rate Rhythm: regular rhythm GI: Palpation (GI): Soft to palpation Auscultation: normal bowel sounds Skin: General skin exam: no rashes or lesions noted Neuro: Other: tremulous asterixis General: patient oriented x3 Cognition (Neuro): normal cognition Extrem: General: Yes normal to inspection and Yes no pedal edema Results Labs CBC and Chem 7: 08/30/21 02:50 08/29/21 21:44 Labs: Laboratory Results - last 24 hr 08/29/21 08/29/21 08/29/21 13:29 13:29 13:29 MCV 91.9 MCH 30.8 MCHC 33.5 RDW 12.9 Plt Count 347 MPV 8.7 L Immature Gran % (Auto) 0.2 Neut % (Auto) 69.6 Lymph % (Auto) 22.1 [place] % (Auto) 6.9 Eos % (Auto) 0.5 Baso % (Auto) 0.7 Lymph # (Auto) 1.2 [place] # (Auto) 0.4 Eos # (Auto) 0.0 Baso # (Auto) 0.0 Abs Immat Gran (auto) 0.01 Absolute Neuts (auto) 3.8 Absolute Nucleated RBC 0.000 Nucleated RBC % (auto) 0.0 VBG pH VBG pCO2 VBG pO2 VBG HCO3 VBG O2 Saturation VBG Base Excess Anion Gap 27 H Estim Creat Clear Calc 126.2 Estimated GFR > 60 Random Glucose 150 H Osmolality Lactic Acid Lactic Acid Fup @ 2Hr Calcium 9.0 Magnesium 1.9 Total Bilirubin 0.5 AST 163 H ALT 112 H Alkaline Phosphatase 69 B-Natriuretic Peptide Total Protein 7.7 Albumin 4.2 Lipase 133 H Urine Color Urine Appearance Urine pH Ur Specific [place] Urine Protein Urine Glucose (UA) Urine Ketones Urine Blood Urine Nitrite Ur Leukocyte Esterase Urine RBC Urine WBC Ur Squamous Epith Cells Urine Bacteria Salicylates Urine Opiates Screen Urine Fentanyl Screen Acetaminophen Ur Barbiturates Screen Ur Phencyclidine Scrn Ur Amphetamines Screen U Benzodiazepines Scrn Urine Cocaine Screen U Marijuana (THC) Screen Ethyl Alcohol 487 H* COVID-19 (NAT) COVID-19 Vizerra 08/29/21 08/29/21 08/29/21 13:29 13:30 17:29 MCV MCH MCHC RDW Plt Count MPV Immature Gran % (Auto) Neut % (Auto) Lymph % (Auto) [place] % (Auto) Eos % (Auto) Baso % (Auto) Lymph # (Auto) [place] # (Auto) Eos # (Auto) Baso # (Auto) Abs Immat Gran (auto) Absolute Neuts (auto) Absolute Nucleated RBC Nucleated RBC % (auto) VBG pH VBG pCO2 VBG pO2 VBG HCO3 VBG O2 Saturation VBG Base Excess Anion Gap Estim Creat Clear Calc Estimated GFR Random Glucose Osmolality 390 H Lactic Acid 3.3 H* Lactic Acid Fup @ 2Hr Calcium Magnesium Total Bilirubin AST ALT Alkaline Phosphatase B-Natriuretic Peptide Total Protein Albumin Lipase Urine Color Urine Appearance Urine pH Ur Specific [place] Urine Protein Urine Glucose (UA) Urine Ketones Urine Blood Urine Nitrite Ur Leukocyte Esterase Urine RBC Urine WBC Ur Squamous Epith Cells Urine Bacteria Salicylates Urine Opiates Screen Urine Fentanyl Screen Acetaminophen Ur Barbiturates Screen Ur Phencyclidine Scrn Ur Amphetamines Screen U Benzodiazepines Scrn Urine Cocaine Screen U Marijuana (THC) Screen Ethyl Alcohol COVID-19 (NAT) Negative COVID-19 Vizerra See Note 08/29/21 08/29/21 08/29/21 17:35 18:09 18:09 MCV MCH MCHC RDW Plt Count MPV Immature Gran % (Auto) Neut % (Auto) Lymph % (Auto) [place] % (Auto) Eos % (Auto) Baso % (Auto) Lymph # (Auto) [place] # (Auto) Eos # (Auto) Baso # (Auto) Abs Immat Gran (auto) Absolute Neuts (auto) Absolute Nucleated RBC Nucleated RBC % (auto) VBG pH 7.40 VBG pCO2 41 VBG pO2 47 VBG HCO3 26 VBG O2 Saturation 68.0 VBG Base Excess 1.5 Anion Gap Estim Creat Clear Calc Estimated GFR Random Glucose Osmolality Lactic Acid Lactic Acid Fup @ 2Hr Calcium Magnesium Total Bilirubin AST ALT Alkaline Phosphatase B-Natriuretic Peptide Total Protein Albumin Lipase Urine Color YELLOW Urine Appearance CLEAR Urine pH 6.0 Ur Specific [place] 1.025 Urine Protein 1+ H Urine Glucose (UA) 250 H Urine Ketones >=80 Urine Blood TRACE Urine Nitrite NEG Ur Leukocyte Esterase NEG Urine RBC 0 Urine WBC 0 Ur Squamous Epith Cells NONE Urine Bacteria TRACE Salicylates Urine Opiates Screen Not Detected Urine Fentanyl Screen Not Detected Acetaminophen Ur Barbiturates Screen POSITIVE H Ur Phencyclidine Scrn Not Detected Ur Amphetamines Screen Not Detected U Benzodiazepines Scrn Not Detected Urine Cocaine Screen Not Detected U Marijuana (THC) Screen Not Detected Ethyl Alcohol COVID-19 (NAT) COVID-[place] 08/29/21 08/29/21 08/29/21 19:27 21:44 21:44 MCV MCH MCHC RDW Plt Count MPV Immature Gran % (Auto) Neut % (Auto) Lymph % (Auto) [place] % (Auto) Eos % (Auto) Baso % (Auto) Lymph # (Auto) [place] # (Auto) Eos # (Auto) Baso # (Auto) Abs Immat Gran (auto) Absolute Neuts (auto) Absolute Nucleated RBC Nucleated RBC % (auto) VBG pH VBG pCO2 VBG pO2 VBG HCO3 VBG O2 Saturation VBG Base Excess Anion Gap 19 Estim Creat Clear Calc 133.0 Estimated GFR > 60 Random Glucose 157 H Osmolality 348 H Lactic Acid Lactic Acid Fup @ 2Hr Calcium 8.7 Magnesium 1.7 Total Bilirubin 0.6 AST 124 H ALT 95 H Alkaline Phosphatase 61 B-Natriuretic Peptide Total Protein 6.5 Albumin 3.8 Lipase Urine Color Urine Appearance Urine pH Ur Specific [place] Urine Protein Urine Glucose (UA) Urine Ketones Urine Blood Urine Nitrite Ur Leukocyte Esterase Urine RBC Urine WBC Ur Squamous Epith Cells Urine Bacteria Salicylates < 5.0 L Urine Opiates Screen Urine Fentanyl Screen Acetaminophen < 1 Ur Barbiturates Screen Ur Phencyclidine Scrn Ur Amphetamines Screen U Benzodiazepines Scrn Urine Cocaine Screen U Marijuana (THC) Screen Ethyl Alcohol COVID-19 (NAT) COVID-[place]oblet 08/29/21 08/29/21 08/29/21 21:44 21:44 21:50 MCV MCH MCHC RDW Plt Count MPV Immature Gran % (Auto) Neut % (Auto) Lymph % (Auto) [place] % (Auto) Eos % (Auto) Baso % (Auto) Lymph # (Auto) [place] # (Auto) Eos # (Auto) Baso # (Auto) Abs Immat Gran (auto) Absolute Neuts (auto) Absolute Nucleated RBC Nucleated RBC % (auto) VBG pH 7.53 H VBG pCO2 35 VBG pO2 68 VBG HCO3 30 H VBG O2 Saturation 92.0 VBG Base Excess 7.4 Anion Gap Estim Creat Clear Calc Estimated GFR Random Glucose Osmolality Lactic Acid 3.2 H* Lactic Acid Fup @ 2Hr Calcium Magnesium Total Bilirubin AST ALT Alkaline Phosphatase B-Natriuretic Peptide < 10 Total Protein Albumin Lipase Urine Color Urine Appearance Urine pH Ur Specific [place] Urine Protein Urine Glucose (UA) Urine Ketones Urine Blood Urine Nitrite Ur Leukocyte Esterase Urine RBC Urine WBC Ur Squamous Epith Cells Urine Bacteria Salicylates Urine Opiates Screen Urine Fentanyl Screen Acetaminophen Ur Barbiturates Screen Ur Phencyclidine Scrn Ur Amphetamines Screen U Benzodiazepines Scrn Urine Cocaine Screen U Marijuana (THC) Screen Ethyl Alcohol COVID-19 (NAT) COVID-19 Vizerra 08/30/21 08/30/21 02:42 02:50 MCV 91.6 MCH 31.7 MCHC 34.6 RDW 12.7 Plt Count 287 MPV 8.8 L Immature Gran % (Auto) 0.1 Neut % (Auto) 68.0 Lymph % (Auto) 22.8 [place] % (Auto) 7.9 Eos % (Auto) 0.7 Baso % (Auto) 0.5 Lymph # (Auto) 1.9 [place] # (Auto) 0.7 Eos # (Auto) 0.1 Baso # (Auto) 0.0 Abs Immat Gran (auto) 0.01 Absolute Neuts (auto) 5.6 Absolute Nucleated RBC 0.000 Nucleated RBC % (auto) 0.0 VBG pH VBG pCO2 VBG pO2 VBG HCO3 VBG O2 Saturation VBG Base Excess Anion Gap Estim Creat Clear Calc Estimated GFR Random Glucose Osmolality Lactic Acid Lactic Acid Fup @ 2Hr 2.5 H* Calcium Magnesium Total Bilirubin AST ALT Alkaline Phosphatase B-Natriuretic Peptide Total Protein Albumin Lipase Urine Color Urine Appearance Urine pH Ur Specific [place] Urine Protein Urine Glucose (UA) Urine Ketones Urine Blood Urine Nitrite Ur Leukocyte Esterase Urine RBC Urine WBC Ur Squamous Epith Cells Urine Bacteria Salicylates Urine Opiates Screen Urine Fentanyl Screen Acetaminophen Ur Barbiturates Screen Ur Phencyclidine Scrn Ur Amphetamines Screen U Benzodiazepines Scrn Urine Cocaine Screen U Marijuana (THC) Screen Ethyl Alcohol COVID-19 (NAT) COVID-19 Clin Com Imaging Radiologist's Impressions: Impressions Abdomen/Pelvis CT 08/29/21 18:22 IMPRESSION: There is wall thickening of the lower esophagus with a prominent periesophageal lymph node. Correlation with esophagitis or reflux disease should be obtained and if indicated further evaluation with an upper enteroscopy could be obtained. Hepatic steatosis. Indeterminate groundglass nodule in the left upper lobe. Patient is younger than 35 years old therefore Fleischner criteria do not apply. If clinically indicated, consider a short-term follow-up to ensure resolution of this finding. Chest CT 08/29/21 18:22 IMPRESSION: There is wall thickening of the lower esophagus with a prominent periesophageal lymph node. Correlation with esophagitis or reflux disease should be obtained and if indicated further evaluation with an upper enteroscopy could be obtained. Hepatic steatosis. Indeterminate groundglass nodule in the left upper lobe. Patient is younger than 35 years old therefore Fleischner criteria do not apply. If clinically indicated, consider a short-term follow-up to ensure resolution of this finding. Assessment and Plan (1) High serum osmolar gap: Status: Acute (2) Alcohol withdrawal syndrome: Status: Acute (3) Alcoholic intoxication: Status: Acute (4) Lactic acidosis: Status: Acute this is a 31-year-old male with a reported but not confirmed past medical history of heart failure who presents to the hospital with complaints of alcohol intoxication in withdrawal after drinking 1 L of vodka found to have high serum osmolar gap as well as positive anion gap # alcohol withdrawal - patient has severe alcohol withdrawal, with tachycardia, hypertension, severe tremors but awake alert and oriented x3 - started on phenobarb protocol, will add extra p.r.n. doses as needed given his high alcohol consumption - thiamine and folic acid supplement - patient was evaluated by ICU, they do not feel that the patient requires ICU admission for alcohol withdrawal at this time - if patient remains in severe withdrawal, may require Precedex for severe alcohol withdrawals - continue metoprolol, hydroxyzine p.r.n. # high serum osmolar gap with an elevated anion gap and compensated metabolic acidosis - most likely secondary to alcohol consumption, patient also appears dehydrated - patient denies using any methanol or ethylene glycol - serum osmolar gap is improving after receiving IV fluids - will continue to monitor osmolar gap, at this time has no kidney dysfunction - follow BMP - continue IV fluids # lactic acidosis - most likely secondary to alcohol consumption as well as vomiting - continue IV fluids - trend lactic acid # history of heart failure - patient reports history of heart failure, according to the ICU physician who did a bedside ultrasound patient has a reduced ejection fraction, currently does not appear to be in decompensation - will resume his home Lopressor, losartan, - monitor for volume overload # hypertension - continue losartan DVT prophylaxis: Lovenox Quality Stroke Does the patient have a stroke diagnosis?: No VTE Prior VTE?: No VTE Risk Level:: Medical - moderate - high VTE Device Contraindication: Treatment Not Indicated VTE Drug Contraindication: N/A - Med Ordered
[2021-08-30 04:48] LABS: Reflex Lactate? 2 Y
[2021-08-30] MEDS: hydrOXYzine HCL 50 MG TABLET PO ×4 (04:58→20:38)
[2021-08-30] MEDS: Gabapentin 100 MG CAPSULE PO ×4 (04:58→20:38)
[2021-08-30 05:01] LABS: Venous Blood Gas Refer to POC result
[2021-08-30 05:03] LABS: VBG Base Excess 5.4 mmol/L; VBG HCO3 27 mmol/L (22-26); VBG pCO2 33 mmHg; VBG pH 7.52 (7.32-7.43); VBG pO2 135 mmHg
[2021-08-30 05:03] LABS: Ethanol 32 mg/dL
[2021-08-30 05:13] LABS: Alanine Aminotransferase 86 U/L (0-40); Albumin Level 3.7 g/dL (3.5-5.0); Alkaline Phosphatase 55 U/L (39-117); Anion Gap 17 (12-20); Aspartate Amino Transferase 103 U/L (5-37); Bilirubin Total 0.9 mg/dL (0.0-1.0); Blood Urea Nitrogen 5 mg/dL (9-16); Calcium 8.8 mg/dL (8.4-10.2); Carbon Dioxide 25 mmol/L (22-29); Chloride 100 mmol/L (96-108); Creatinine Clr Calc Pharmacy 147.3; Estimated Glomerular Filt Rate > 60; Glucose Random 89 mg/dL (60-115); Potassium 3.4 mmol/L (3.3-5.1); Sodium 139 mmol/L (135-145); Total Protein 6.1 g/dL (6.5-8.0)
--- NOTE | 2021-08-30 05:15 | PC.NURSE ---
pt has been tachycardic the entire shift, pt trembles while awake, pt states he drinks a half gallon of vodka a day, will continue to monitor
[2021-08-30 05:22] LABS: Osmolality, Serum 297 mosm/kg (281-305)
[2021-08-30 05:59] LABS: Basophils Percent Auto 0.4 % (0-2); Eosinophils Percent Auto 0.4 % (0-4); Hematocrit 41.2 % (42.0-52.0); Hemoglobin 14.3 g/dl (14.0-18.0); Imm Gran Abs Auto 0.02 X10*3/uL (0.00-0.03); Imm Gran Pct Auto 0.2 % (0.0-0.4); Lymphocytes Absolute Auto 1.3 X10*3/uL (1.2-4.9); Lymphocytes Percent Auto 14.1 % (20-40); MANUAL DIFF FLAG NO; Mean Corpuscular HGB Conc 34.7 g/dl (31.0-36.0); Mean Corpuscular Hemoglobin 31.7 pg (27.0-33.0); Mean Corpuscular Volume 91.4 fL (80.0-98.0); Mean Platelet Volume 8.6 fL (9.4-12.4); Monocytes Absolute Auto 0.7 X10*3/uL (0.1-1.2); Monocytes Percent Auto 7.8 % (2-11); Neutrophils Absolute Auto 6.9 x10*3/uL (2.0-8.3); Neutrophils Percent Auto 77.1 % (45-73); Platelet Count 247 X10*3/uL (160-400); Red Blood Count 4.51 X10*6/uL (4.60-5.80); Red Cell Distribution Width 12.8 % (11.0-16.0)
[2021-08-30 06:09] LABS: ~Lactic Acid-LAB USE ONLY 1.3 mmol/L (0.5-2.0)
[2021-08-30] MEDS: Omeprazole 20 MG CAPSULE.DR PO ×2 (07:02→17:32)
[2021-08-30] MEDS: Metoprolol Succinate ER 50 MG TAB.ER.24H PO (08:22)
[2021-08-30] MEDS: Losartan Potassium 25 MG TABLET PO (08:22)
[2021-08-30] MEDS: Escitalopram Oxalate 10 MG TABLET PO (08:22)
[2021-08-30] MEDS: PHENobarbitaL 30 MG TABLET 60 MG PO ×2 (08:22→20:38)
[2021-08-30] MEDS: Nicotine 21 MG PATCH.TD24 TRANSDERMA (09:22)
[2021-08-30] MEDS: Folic Acid 1 MG TABLET PO (09:22)
[2021-08-30] MEDS: Thiamine HCL 100 MG TABLET PO (09:22)
[2021-08-30] MEDS: PHENobarbitaL sodium 130 MG/ML VIAL IM ×2 (09:23→20:37)
--- NOTE | 2021-08-30 09:53 | P.CDIC_ITS ---
CDI Concurrent Query Documentation Clarification: PHYSICIAN'S DOCUMENTATION REQUEST Date of Query: 08/30/21 0954 Patient Name: Deedee Chawla Admit Date: 08/30/21 Dear Doctor, A review of the medical record indicates additional documentation may be needed. Please review below and update the documentation accordingly. Clinical Indicators: Risk Factors/Clinical Indicators/Treatments Dx. Acute pancreatitis Patient in alcohol withdrawals, ICU notes acute pancreatitis. Ethyl alcohol level 487 mg% Tremulous, anxious, drank 1 liter vodka. Based on the above, could you clarify in the Progress Notes the appropriate diagnosis, if significant, that supports the above abnormalities and additional evaluation, monitoring, and/or treatment rendered: * Acute pancreatitis * Alcoholic pancreatitis * Other (please specify) * Unable to determine Use of terms such as suspected, likely, concern for, or probable (associated with a specific diagnosis that is being evaluated, monitored, or treated as if it exists) are acceptable and can be coded in the inpatient setting, when documented at the time of discharge. Thank you, Soraya Chisholm [facility], CDIS Extension: [phone] Please use your independent medical judgment in providing your response. THIS QUERY IS PART OF THE PERMANENT MEDICAL RECORD Provider Response: Other Other Diagnosis: Unable to determine
--- NOTE | 2021-08-30 12:25 | P.CONNP_ITS ---
History of Present Illness Reason for Consult Consult date: 08/30/21 Chief Complaint Chief complaint: Alcohol Withdrawal History of Present Illness Narrative: 31 year-old male with past medical history of hypertension presented to [facility] for alcohol withdrawal.He drinks about 1 L of vodka a day. He has been vomiting, denies any chest pain, no abdominal pain, he denies any urinary symptoms, denies any shortness of breath. No fever or chills.? No lower extremity edema. He had elevated anion gap as well as an? serum osmolality of 390, with alcohol level close to 500, lactic acid of 3.2, with pH of 7.4 & bicarb of 19. His renal functions are normal. Nephrology has been consulted to assist in his clinical care during his current hospital stay Review of Systems Review of Systems Yes all other systems are reviewed and are negative PMF Past Medical History Medical History Congestive cardiomyopathy Social History Social History Alcohol intake: current Alcohol intake frequency: 3 or more drinks per day Alcohol type: hard liquor Substance Use Type: Marijuana Advance Directives: No Advance Directives Information Provided: Yes Meds Allergies Allergy/AdvReac Type Severity Reaction Status Date / Time oxycodone [OXYCODONE] Allergy Unknown RASH Verified 08/29/21 19:06 Seasonale Allergy Unknown Sneezing Uncoded 08/29/21 19:06 Active Medications: Current Medications Acetaminophen (Acetaminophen 325 Mg Tablet) 650 mg PO Q6H PRN PRN Reason: Pain, Mild (Pain Scale 1-3) Acetaminophen (Acetaminophen 325 Mg Tablet) 650 mg PO Q6H PRN PRN Reason: Pain, Mild (Pain Scale 1-3) Docusate Sodium (Docusate Sodium 100 Mg Capsule) 100 mg PO DAILY PRN PRN Reason: Constipation Enoxaparin Sodium (Enoxaparin Sodium 40 Mg/0.4 Ml Syringe) 40 mg SUBCUT Q24H [facility] Last Admin: 08/29/21 18:55 Dose: 40 mg Documented by: Escitalopram Oxalate (Escitalopram Oxalate 10 Mg Tablet) 10 mg PO DAILY [facility] Last Admin: 08/30/21 08:22 Dose: 10 mg Documented by: Folic Acid (Folic Acid 1 Mg Tablet) 1 mg PO DAILY [facility] Last Admin: 08/30/21 09:22 Dose: 1 mg Documented by: Gabapentin (Gabapentin 100 Mg Capsule) 100 mg PO TID [facility] Last Admin: 08/30/21 08:22 Dose: 100 mg Documented by: Hydroxyzine HCl (Hydroxyzine Hcl 50 Mg Tablet) 50 mg PO TID [facility] Last Admin: 08/30/21 08:22 Dose: 50 mg Documented by: Lactated Ringer's (Lr) 1,000 mls @ 150 mls/hr IVCONT .Q6H40M [facility] Last Admin: 08/30/21 10:44 Dose: 150 mls/hr Documented by: Losartan Potassium (Losartan Potassium 25 Mg Tablet) 25 mg PO DAILY [facility]; Protocol Last Admin: 08/30/21 08:22 Dose: 25 mg Documented by: Medication (No Benzodiazepines) 1 each MISCELLANE DAILY [facility] Metoprolol Succinate (Metoprolol Succinate Er 50 Mg Tab.Er.24h) 50 mg PO DAILY [facility]; Protocol Last Admin: 08/30/21 08:22 Dose: 50 mg Documented by: Nicotine (Nicotine 21 Mg Patch.Td24) 21 mg TRANSDERMA DAILY [facility] Last Admin: 08/30/21 09:22 Dose: 21 mg Documented by: Omeprazole (Omeprazole 20 Mg Capsule.Dr) 20 mg PO BID@0630,1630 [facility] Last Admin: 08/30/21 07:02 Dose: 20 mg Documented by: Ondansetron HCl (Ondansetron Hcl 4 Mg/2 Ml Vial) 4 mg IVPUSH Q8H PRN PRN Reason: Nausea and Vomiting Ondansetron HCl (Ondansetron Hcl 4 Mg/2 Ml Vial) 4 mg IVPUSH Q8H PRN PRN Reason: Nausea and Vomiting Pharmacy Consult (Consult Rx Perform Med Rec) 1 each MISCELLANE ONCE PRN PRN Reason: Consult order Phenobarbital (Phenobarbital 30 Mg Tablet) 60 mg PO BID [facility] Stop: 08/31/21 21:01 Last Admin: 08/30/21 08:22 Dose: 60 mg Documented by: Phenobarbital (Phenobarbital 30 Mg Tablet) 30 mg PO BID [facility] Stop: 09/02/21 21:01 Phenobarbital (Phenobarbital 30 Mg Tablet) 30 mg PO DAILY [facility] Stop: 09/04/21 09:01 Sodium Chloride (0.9 % Sodium Chloride Flush 3 Ml Syringe) 3 ml IVFLUSH QSHIFT [facility] Last Admin: 08/30/21 07:02 Dose: Not Given Documented by: Thiamine HCl (Thiamine Hcl 100 Mg Tablet) 100 mg PO DAILY [facility] Last Admin: 08/30/21 09:22 Dose: 100 mg Documented by: Home Medications Medication Instructions Recorded Confirmed Last Taken Type escitalopram oxalate 10 mg tablet 1 tab PO DAILY 08/29/21 08/29/21 08/26/21 History gabapentin 100 mg capsule 1 cap PO TID 08/29/21 08/29/21 08/29/21 History hydroxyzine pamoate 50 mg capsule 1 cap PO TID 08/29/21 08/29/21 08/22/21 History losartan 25 mg tablet 1 tab PO DAILY 08/29/21 08/29/21 08/29/21 History metoprolol succinate 50 mg 1 tab PO DAILY 08/29/21 08/29/21 08/29/21 History tablet,extended release 24 hr nicotine 21 mg/24 hr daily 1 patch TOPICAL DAILY 08/29/21 08/29/21 08/29/21 History transdermal patch pantoprazole 40 mg tablet,delayed 1 tab PO BID 08/29/21 08/29/21 08/29/21 History release Physical Exam Vital Signs: Last Vital Signs Temp 97.6 F 08/30/21 07:00 Pulse 85 08/30/21 08:29 Resp 14 08/30/21 08:29 BP 136/91 H 08/30/21 08:29 Pulse Ox 94 08/30/21 08:29 BMI result Body Mass Index 29.2 Const General: no acute distress Neck Neck: Yes supple Resp Auscultation: diminished lung sounds Cardio Rate: regular rate GI Palpation (GI): Soft to palpation Neuro General: moves all extremities Results Lab Results Result Diagrams: 08/30/21 05:55 08/30/21 04:45 Lab results: Chemistry 08/29/21 08/29/21 08/30/21 13:29 21:44 04:45 Sodium 141 139 139 Potassium 4.5 3.8 3.4 Carbon Dioxide 19 L 23 25 BUN 8 L 7 L 5 L Creatinine 0.98 0.93 0.84 Calcium 9.0 8.7 8.8 Hematology 08/29/21 08/30/21 08/30/21 13:29 02:50 05:55 WBC 5.5 8.2 9.0 Hgb 17.1 15.4 14.3 Plt Count 347 287 247 Urinalysis 08/29/21 18:09 Urine Color YELLOW Urine Appearance CLEAR Urine pH 6.0 Ur Specific [place] 1.025 Urine Protein 1+ H Urine Glucose (UA) 250 H Urine Ketones >=80 Urine Blood TRACE Urine Nitrite NEG Ur Leukocyte Esterase NEG Urine RBC 0 Urine WBC 0 Ur Squamous Epith Cells NONE Assessment and Plan (1) Lactic acidosis: Status: Acute [place] gap not concerning Lactate levels improved Renal functions normal Urine output good Serum bicarb normal Continue current supportive care Procedures Date of Service Date of Service: 08/30/21
--- NOTE | 2021-08-30 13:08 | MHC.CM.PN ---
Met with patient in regards to discharge planning. Patient's primary language is Telugu but he speaks/understands Tristanian. Patient lives along, ambulates independently and had no services prior to coming to the hospital. Patient has no PCP. dermatology physician assistant has been asked to make a new patient appointment at [facility] because patient has Medicaid limited for insurance due to not being an [place] Citizen. No services anticipated to be needed because patient is not homebound. Copy of HCP obtained from [facility]. Patient has not received any Covid vaccines. Patient will need [facility] shuttle to transport when medically stable. Continue to monitor for d/c needs.
[2021-08-30] MEDS: ondansetron HCL 4 MG/2 ML VIAL IVPUSH (13:17)
--- NOTE | 2021-08-30 16:53 | PM.EVENT ---
Event Note Date of Service: 08/30/21 Event Note: Chart reviewed patient examined. 31-year-old male with extensive alcohol history presents with GI upset inability to drink in acute alcohol withdrawal. Started on phenobarb protocol; given several doses of IV phenobarb. Reassess that at this time he is resting quietly no seizure activity noted. Physical exam unchanged since a.m. plan as ordered
[2021-08-30] MEDS: Enoxaparin Sodium 40 MG/0.4 ML SYRINGE SUBCUT (17:36)
--- NOTE | 2021-08-30 17:39 | PC.NURSE ---
Assumed care of pt at 1600, pt resting comfortably, denies any pain or CIWA symptoms at this time, just states he is tired and would like to sleep. Pt is A&Ox3, LCA, tremors noted, no AH/VH, headache at this time. Call fletcher within reach, will continue to monitor.
--- NOTE | 2021-08-30 17:56 | MHC.RECOVSUP ---
Met with Pt. He states that he is depressed and is having a lot of anxiety . Also he stated that he was in a relationship for awhile but girlfriend decided to end the relationship.Thats when he started to drink again heavily.Wants to stop drinking but has no clue on how. Gave Pt. my phone number and resources Told him i will check on him while he is in the hospital.
--- NOTE | 2021-08-30 20:23 | PC.NURSE ---
Pt to floor via wc in stable condition w/ all belongings, attached to cardiac surgeon for transport
[2021-08-30] MEDS: 0.9 % Sodium Chloride Flush 3 ML SYRINGE IVFLUSH (20:40)
[2021-08-31] VITALS (7 sets, daily range): BP systolic 125–142; BP diastolic 86–96; PULSE 70–100; RESP 16–20; TEMP 36.6–37.1; O2SAT 96–99
[2021-08-31 05:29] LABS: Analysis Performed on: WHOLE BLOOD; Ethylene Glycol NONE DETECTED (NONE DETECTED); Methyl Alcohol Level NONE DETECTED (NONE DETECTED)
[2021-08-31] MEDS: Lactated Ringers 1,000 ML 150 ML IVCONT ×3 (05:30→18:20)
[2021-08-31] MEDS: Omeprazole 20 MG CAPSULE.DR PO ×2 (05:51→15:32)
[2021-08-31 06:36] LABS: MANUAL DIFF FLAG NO
[2021-08-31 06:49] LABS: Basophils Percent Auto 0.5 % (0-2); Eosinophils Absolute Auto 0.2 X10*3/uL (0.0-0.4); Eosinophils Percent Auto 3.5 % (0-4); Hematocrit 43.2 % (42.0-52.0); Hemoglobin 14.8 g/dl (14.0-18.0); Imm Gran Abs Auto 0.02 X10*3/uL (0.00-0.03); Imm Gran Pct Auto 0.4 % (0.0-0.4); Lymphocytes Absolute Auto 1.2 X10*3/uL (1.2-4.9); Lymphocytes Percent Auto 21.4 % (20-40); Mean Corpuscular HGB Conc 34.3 g/dl (31.0-36.0); Mean Corpuscular Hemoglobin 31.7 pg (27.0-33.0); Mean Corpuscular Volume 92.5 fL (80.0-98.0); Mean Platelet Volume 9.3 fL (9.4-12.4); Monocytes Absolute Auto 0.4 X10*3/uL (0.1-1.2); Monocytes Percent Auto 7.6 % (2-11); Neutrophils Absolute Auto 3.8 x10*3/uL (2.0-8.3); Neutrophils Percent Auto 66.6 % (45-73); Platelet Count 213 X10*3/uL (160-400); Red Blood Count 4.67 X10*6/uL (4.60-5.80); Red Cell Distribution Width 12.5 % (11.0-16.0); White Blood Count 5.7 X10*3/uL (4.8-10.8)
[2021-08-31 07:30] LABS: Alanine Aminotransferase 66 U/L (0-40); Albumin Level 3.4 g/dL (3.5-5.0); Alkaline Phosphatase 50 U/L (39-117); Anion Gap 13 (12-20); Aspartate Amino Transferase 79 U/L (5-37); Bilirubin Total 0.9 mg/dL (0.0-1.0); Blood Urea Nitrogen 5 mg/dL (9-16); Calcium 8.9 mg/dL (8.4-10.2); Carbon Dioxide 26 mmol/L (22-29); Chloride 104 mmol/L (96-108); Creatinine Clr Calc Pharmacy 148.7; Estimated Glomerular Filt Rate > 60; Glucose Fasting 80 mg/dL (60-99); Potassium 3.7 mmol/L (3.3-5.1); Sodium 139 mmol/L (135-145); Total Protein 5.8 g/dL (6.5-8.0)
[2021-08-31] MEDS: hydrOXYzine HCL 50 MG TABLET PO ×3 (08:41→20:40)
[2021-08-31] MEDS: Escitalopram Oxalate 10 MG TABLET PO (08:42)
[2021-08-31] MEDS: Thiamine HCL 100 MG TABLET PO (08:42)
[2021-08-31] MEDS: Metoprolol Succinate ER 50 MG TAB.ER.24H PO (08:42)
[2021-08-31] MEDS: PHENobarbitaL 30 MG TABLET 60 MG PO ×2 (08:42→20:40)
[2021-08-31] MEDS: Nicotine 21 MG PATCH.TD24 TRANSDERMA (08:42)
[2021-08-31] MEDS: Folic Acid 1 MG TABLET PO (08:42)
[2021-08-31] MEDS: Losartan Potassium 25 MG TABLET PO (08:42)
[2021-08-31] MEDS: Gabapentin 100 MG CAPSULE PO ×3 (08:42→20:41)
--- NOTE | 2021-08-31 14:31 | MHC.CM.PN ---
Male 31 DX ETOH W/D No discharge today. PATIENT ON PHENOBARB Protocol. He c/o GI upset. DP Home no services. C shuttle will be needed for a ride home.
--- NOTE | 2021-08-31 14:40 | HO.PM.IMPN ---
Subjective Subjective Date of Service: 08/31/21 Interval History: Doing well with phenobarb protocol. Still feels ?lousy?. No evidence of seizures Review of Systems Denies chest pain Denies shortness of breath Denies nausea vomiting diarrhea Physical Exam Vital Signs: Vital Signs: Last Vital Signs Temp 98.6 F 08/31/21 11:13 Pulse 75 08/31/21 11:13 Resp 18 08/31/21 11:13 BP 140/89 H 08/31/21 11:13 Pulse Ox 99 08/31/21 11:13 BMI result Body Mass Index 29.1 Objective Data Active Medications Acetaminophen (Acetaminophen 325 Mg Tablet) 650 mg PO Q6H PRN PRN Reason: Pain, Mild (Pain Scale 1-3) Acetaminophen (Acetaminophen 325 Mg Tablet) 650 mg PO Q6H PRN PRN Reason: Pain, Mild (Pain Scale 1-3) Docusate Sodium (Docusate Sodium 100 Mg Capsule) 100 mg PO DAILY PRN PRN Reason: Constipation Enoxaparin Sodium (Enoxaparin Sodium 40 Mg/0.4 Ml Syringe) 40 mg SUBCUT Q24H [facility] Last Admin: 08/30/21 17:36 Dose: 40 mg Documented by: FELY-JACOBY Escitalopram Oxalate (Escitalopram Oxalate 10 Mg Tablet) 10 mg PO DAILY [facility] Last Admin: 08/31/21 08:42 Dose: 10 mg Documented by: COTEMA Folic Acid (Folic Acid 1 Mg Tablet) 1 mg PO DAILY [facility] Last Admin: 08/31/21 08:42 Dose: 1 mg Documented by: COTEMA Gabapentin (Gabapentin 100 Mg Capsule) 100 mg PO TID [facility] Last Admin: 08/31/21 08:42 Dose: 100 mg Documented by: COTEMA Hydroxyzine HCl (Hydroxyzine Hcl 50 Mg Tablet) 50 mg PO TID [facility] Last Admin: 08/31/21 08:41 Dose: 50 mg Documented by: COTEMA Lactated Ringer's (Lr) 1,000 mls @ 150 mls/hr IVCONT .Q6H40M [facility] Last Admin: 08/31/21 12:06 Dose: 150 mls/hr Documented by: COTEMA Losartan Potassium (Losartan Potassium 25 Mg Tablet) 25 mg PO DAILY [facility]; Protocol Last Admin: 08/31/21 08:42 Dose: 25 mg Documented by: COTEMA Medication (No Benzodiazepines) 1 each MISCELLANE DAILY [facility] Metoprolol Succinate (Metoprolol Succinate Er 50 Mg Tab.Er.24h) 50 mg PO DAILY [facility]; Protocol Last Admin: 08/31/21 08:42 Dose: 50 mg Documented by: SHEFALI Nicotine (Nicotine 21 Mg Patch.Td24) 21 mg TRANSDERMA DAILY [facility] Last Admin: 08/31/21 08:42 Dose: 21 mg Documented by: SHEFALI Omeprazole (Omeprazole 20 Mg Capsule.Dr) 20 mg PO BID@0630,1630 [facility] Last Admin: 08/31/21 05:51 Dose: 20 mg Documented by: AUSTIN Ondansetron HCl (Ondansetron Hcl 4 Mg/2 Ml Vial) 4 mg IVPUSH Q8H PRN PRN Reason: Nausea and Vomiting Last Admin: 08/30/21 13:17 Dose: 4 mg Documented by: KATIE Ondansetron HCl (Ondansetron Hcl 4 Mg/2 Ml Vial) 4 mg IVPUSH Q8H PRN PRN Reason: Nausea and Vomiting Pharmacy Consult (Consult Rx Perform Med Rec) 1 each MISCELLANE ONCE PRN PRN Reason: Consult order Phenobarbital (Phenobarbital 30 Mg Tablet) 60 mg PO BID [facility] Stop: 08/31/21 21:01 Last Admin: 08/31/21 08:42 Dose: 60 mg Documented by: SHEFALI Phenobarbital (Phenobarbital 30 Mg Tablet) 30 mg PO BID [facility] Stop: 09/02/21 21:01 Phenobarbital (Phenobarbital 30 Mg Tablet) 30 mg PO DAILY [facility] Stop: 09/04/21 09:01 Sodium Chloride (0.9 % Sodium Chloride Flush 3 Ml Syringe) 3 ml IVFLUSH QSHIFT [facility] Last Admin: 08/31/21 14:13 Dose: Not Given Documented by: SHEFALI Non-Admin Reason: IV Running Thiamine HCl (Thiamine Hcl 100 Mg Tablet) 100 mg PO DAILY [facility] Last Admin: 08/31/21 08:42 Dose: 100 mg Documented by: SHEFALI Labs CBC & Chem 7: 08/31/21 06:08 08/31/21 06:08 Labs: Laboratory Results - last 24 hr 08/29/21 08/31/21 08/31/21 19:27 06:08 06:08 MCV 92.5 MCH 31.7 MCHC 34.3 RDW 12.5 Plt Count 213 MPV 9.3 L Immature Gran % (Auto) 0.4 Neut % (Auto) 66.6 Lymph % (Auto) 21.4 Weakley % (Auto) 7.6 Eos % (Auto) 3.5 Baso % (Auto) 0.5 Lymph # (Auto) 1.2 Weakley # (Auto) 0.4 Eos # (Auto) 0.2 Baso # (Auto) 0.0 Abs Immat Gran (auto) 0.02 Absolute Neuts (auto) 3.8 Absolute Nucleated RBC 0.000 Nucleated RBC % (auto) 0.0 Anion Gap 13 Estim Creat Clear Calc 148.7 Estimated GFR > 60 Random Glucose TNP Fasting Glucose 80 Calcium 8.9 Total Bilirubin 0.9 AST 79 H ALT 66 H Alkaline Phosphatase 50 Total Protein 5.8 L Albumin 3.4 L Ethylene Glycol NONE DETECTED Volat Analys Perform On WHOLE BLOOD Methyl Alcohol Level NONE DETECTED Assessment and Plan (1) Alcoholic hepatitis: Status: Acute (2) Alcohol withdrawal syndrome: Status: Acute Assessment and Plan: this is a 31-year-old male with a reported but not confirmed past medical history of heart failure who presents to the hospital with complaints of alcohol intoxication in withdrawal after drinking 1 L of vodka found to have high serum osmolar gap as well as positive anion gap#000 alcohol withdrawal 1.Alcohol Withdraw Doing well with Phenobarb protocol No seizure activity Care Team consult when appropriate 2. LVEF 35-45% at baseline. Well compensated at this time Check formal echo 3.Hypertension Continue losartan/Metoprolol as per home dosing 4. EToH Hepatitis Trending downward...continue to follow DVT prophylaxis: Lovenox Quality Stroke Does the patient have a stroke diagnosis?: No VTE Prior VTE?: No VTE Risk Level:: Medical - moderate - high VTE Device Contraindication: Treatment Not Indicated VTE Drug Contraindication: N/A - Med Ordered
[2021-08-31] MEDS: Enoxaparin Sodium 40 MG/0.4 ML SYRINGE SUBCUT (15:32)
[2021-08-31] MEDS: 0.9 % Sodium Chloride Flush 3 ML SYRINGE IVFLUSH (20:41)
[2021-09-01] MEDS: diphenhydrAMINE HCL 50 MG/ML VIAL 25 MG IVPUSH (00:29)
[2021-09-01] MEDS: Lactated Ringers 1,000 ML 150 ML IVCONT ×2 (01:04→07:53)
[2021-09-01 03:27] VITALS: BP 140/86; PULSE 86; RESP 17; TEMP 36.8; O2SAT 97
[2021-09-01] MEDS: Omeprazole 20 MG CAPSULE.DR PO (06:29)
[2021-09-01 06:49] LABS: Alanine Aminotransferase 73 U/L (0-40); Albumin Level 3.4 g/dL (3.5-5.0); Alkaline Phosphatase 54 U/L (39-117); Anion Gap 12 (12-20); Aspartate Amino Transferase 82 U/L (5-37); Bilirubin Total 0.5 mg/dL (0.0-1.0); Blood Urea Nitrogen 7 mg/dL (9-16); Calcium 8.7 mg/dL (8.4-10.2); Carbon Dioxide 26 mmol/L (22-29); Chloride 105 mmol/L (96-108); Creatinine Clr Calc Pharmacy 154.3; Estimated Glomerular Filt Rate > 60; Glucose Fasting 83 mg/dL (60-99); Potassium 3.6 mmol/L (3.3-5.1); Sodium 139 mmol/L (135-145); Total Protein 5.7 g/dL (6.5-8.0)
[2021-09-01 07:48] VITALS: BP 138/95; PULSE 63; RESP 18; TEMP 36.4; O2SAT 97
[2021-09-01 08:16] VITALS: BP 138/95; PULSE 63
[2021-09-01] MEDS: Nicotine 21 MG PATCH.TD24 TRANSDERMA (08:16)
[2021-09-01] MEDS: Losartan Potassium 25 MG TABLET PO (08:16)
[2021-09-01 08:17] VITALS: BP 138/95; PULSE 63
[2021-09-01] MEDS: Thiamine HCL 100 MG TABLET PO (08:17)
[2021-09-01] MEDS: Metoprolol Succinate ER 50 MG TAB.ER.24H PO (08:17)
[2021-09-01] MEDS: Folic Acid 1 MG TABLET PO (08:17)
[2021-09-01] MEDS: PHENobarbitaL 30 MG TABLET PO (08:17)
[2021-09-01] MEDS: Gabapentin 100 MG CAPSULE PO (08:18)
[2021-09-01] MEDS: hydrOXYzine HCL 50 MG TABLET PO ×2 (08:18→14:17)
[2021-09-01] MEDS: Escitalopram Oxalate 10 MG TABLET PO (08:18)
[2021-09-01 11:28] VITALS: BP 130/78; PULSE 74; RESP 18; TEMP 36.8; O2SAT 98
--- NOTE | 2021-09-01 11:42 | MHC.CM.PN ---
Male 31 is discharged to day to home. No home services have been ordered. The [facility] shuttle has been booked 2:30pm. A coupon has been provided to the patient for [facility] transportation.
--- NOTE | 2021-09-01 12:20 | P.DS_ITS ---
DS: Providers Provider Date of Service: 09/01/21 Date of admission: 08/30/21 04:43 Primary care physician: Unknown Physician Consults: 08/29/21 20:47 Consult to Nephrology Stat Consulting Provider: Macario Mercado Reason for consultation: Metabolic process Has provider been notified: No 09/01/21 08:08 Consult to Care Team Routine Comment: Reason for consultation: alocholism DS: Diagnosis Discharge Diagnosis (1) Alcoholic hepatitis: (2) Alcohol withdrawal syndrome: Status: Resolved DS: Summary Hospital Course Hospital Course: 81-year-old male with past medical history of hypertension, and reported history of heart failure although patient is not forthcoming with too much information presents to the hospital with complaints of alcohol withdrawal.? Patient is very tremulous, very anxious, and says that he is too sick to talk.? He came in after drinking 1 L of vodka on feeling sick, he has been vomiting, denies any chest pain, no abdominal pain, he denies any urinary symptoms, denies any shortness of breath, but is very anxious and very tremulous.? No fever or chills.? No lower extremity edema. ? I cannot get more details from him as he says that he cannot talk much due to his withdrawals.? ?on arrival to the ED patient's vitals are significant for a temp of 98.2?, heart rate of 150, respiratory rate of 22, blood pressure 140/93, satting 93% on room air, ?patient had multiple abnormal labs including and elevated anion gap as well as an? serum osmolality of 390, at the time of presentation these labs are concerning for methanol toxicity, patient was attempted to be transferred to tertiary care unit for possible alcohol toxicity but due to other hospitals having no beds available, patient was treated and managed in the ED.? His alcohol level was also found to be close to 500,? the lactic acid of 3.2, ?on arrival his pH is 7.4 with a bicarb of 19 that has now improved to 23. ?patient was treated with phenobarb as well as IV fluids with improvement in his osmolality, gap, as well as lactic acid. ? Patient at this time is still extremely tremulous but clinically appears stable Hospital course: 31-year-old male with a reported but not confirmed past medical history of heart failure who presents to the hospital with complaints of alcohol intoxication in withdrawal after drinking 1 L of vodka? found to have high serum osmolar gap as well as positive? anion gap metabolic acidodosis.. He denied non ethyl alcohol use. Initially was considered for ICU admission but ultimately admitted to medical floor and trated with Phenobarbital, hydration and seems to have responded well to therapy. He presently doesn have any symptoms of alcohol withdrawal such as tachycardia, tremors or confusion and has not had seizure. We talked about means of stopping drinking and he seems highly motivated to want to stop drinking--he has been able to do this for 9 months before. He has been evaluated and given resources by our recovery team. 2. LVEF 35-45% at [facility], history of heart failure, clinically compensated ? 3.Hypertension--continue metoprolol and Losartan ?? 4. EToH Hepatitis--has trended down, outpatient PCP follow up ? ? Trending downward...continue to follow Time Spent with Patient Time attestation: Total time spent providing and/or coordinating discharge services: Discharge coordination time: Greater than 30 minutes Quality: Stroke Does the patient have a stroke diagnosis?: No Physical Exam Verdana 4l Vital Signs: Verdana 4d Verdana 4d Vital Signs: Verdana 4d Verdana 4Bd Last Vital Signs Verdana 4d Radiologic Technology Instructor New 4d Radiologic Technology Instructor New 4d Temp 98.2 F 09/01/21 11:28 Radiologic Technology Instructor New 4d Pulse 74 09/01/21 11:28 Radiologic Technology Instructor New 4d Resp 18 09/01/21 11:28 BP 130/78 09/01/21 11:28 Pulse Ox 98 09/01/21 11:28 BMI result Body Mass Index 29.1 Const: Other: General: AO X 3, no acute distress Resp: CTA bilateral CVS: S1,S2,RRR GI: +BS, NT, no distention Skin: No rash Neuro: motor grossly intact Psych: appropriate affect DS: Data Data Completed and Pending Labs on day of discharge: Laboratory Results - last 24 hr 09/01/21 05:38 Sodium 139 Potassium 3.6 Chloride 105 Carbon Dioxide 26 Anion Gap 12 BUN 7 L Creatinine 0.80 Estim Creat Clear Calc 154.3 Estimated GFR > 60 Fasting Glucose 83 Calcium 8.7 Total Bilirubin 0.5 AST 82 H ALT 73 H Alkaline Phosphatase 54 Total Protein 5.7 L Albumin 3.4 L Discharge Plan Discharge Anticipated Discharge Date/Time: 09/01/21 12:17 Patient Disposition: Home, Self-Care Discharge Diagnosis: Alcohol withdrawal syndrome Referrals: Physician,Unknown J [Primary Care Provider] - 1 Week Discharge Medications: Continued metoprolol succinate 50 mg tablet extended release 24 hr 1 tab PO DAILY 0RF hydroxyzine pamoate 50 mg capsule 1 cap PO TID 0RF pantoprazole 40 mg tablet,delayed release (DR/EC) 1 tab PO BID 0RF losartan 25 mg tablet 1 tab PO DAILY 0RF nicotine 21 mg/24 hr patch 24 hour 1 patch topical DAILY 0RF gabapentin 100 mg capsule 1 cap PO TID 0RF escitalopram oxalate 10 mg tablet 1 tab PO DAILY 0RF Discharge Orders: Discharge Order (Routine); Ordered 09/01/21 Ordered By: Frank Greer Diet: advance to usual diet Activity on Discharge: As tolerated Stand Alone Forms: Patient Portal Discharge page Care Plan Goals: To remain sobber Health Concerns: Alcohol withdrawal, chronic alcohol dependency Plan of Treatment: Avoid alcohol, use resources given to by CARE team, call your Dcotor and arrange for outpatient follow up Assessment: As above Discharge Date/Time: 09/01/21 14:39
== END 2021-09-01 14:39 | disposition home or self-care (01) | DRG 280 ==
LOC: HO.ED 08-30 05:04 → HO.EDOVER 08-30 05:10 → HO.IMC 08-30 18:28
PROVIDERS: Hospitalist; Nurse Practitioner Acute Care; Physician Assistant; Physician Assistant Medical; Admitting Provider Internal Medicine; Emergency Provider Emergency Medicine; Visit Provider Internal Medicine
DX: K70.10 Alcoholic hepatitis without ascites (principal); E87.4 Mixed disorder of acid-base balance; I42.0 Dilated cardiomyopathy; F17.210 Nicotine dependence, cigarettes, uncomplicated; F10.229 Alcohol dependence with intoxication, unspecified; Z20.822 Contact with and (suspected) exposure to COVID-19; Z71.6 Tobacco abuse counseling; F10.239 Alcohol dependence with withdrawal, unspecified; Z91.14 Patient's other noncompliance with medication regimen; Y90.8 Blood alcohol level of 240 mg/100 ml or more; E86.0 Dehydration; I50.22 Chronic systolic (congestive) heart failure; I11.0 Hypertensive heart disease with heart failure; Z88.5 Allergy status to narcotic agent; Z79.899 Other long term (current) drug therapy
CPT/HCPCS: 36415; 71250; 74176; 80053; 80143; 80179; 80307; 80320; 81001; 82077; 82693; 82803; 83605; 83690; 83735; 83880; 83930; 85025; 87635; 93005; 99285; J1200; J1650; J2405; J2560; J3411

== ENCOUNTER 2021-10-27 14:29 | Emergency (ER) | payer MEDICAID, OTHER, SELFPAY ==
[2021-10-27 14:38] VITALS: BP 140/92; PULSE 148; O2SAT 97
[2021-10-27 14:44] VITALS: BP 119/69; PULSE 136; RESP 20; TEMP 36.6; O2SAT 97; BMI 31.0
--- NOTE | 2021-10-27 15:25 | PC.NURSE ---
PT REFUSING CARE. WALKING IN ED WITH A STEADY GAIT. ENCOURAGED TO SEE PROVIDER AND PT DECLINED
== END 2021-10-27 15:26 | disposition left against medical advice (07) ==
PROVIDERS: Emergency Provider Emergency Medicine
DX: F10.129 Alcohol abuse with intoxication, unspecified (principal); Z79.899 Other long term (current) drug therapy
CPT/HCPCS: 99281; 99282

== ENCOUNTER 2022-02-12 17:17 | Emergency (ER) | payer MEDICAID, OTHER, SELFPAY ==
[2022-02-12 17:35] VITALS: BP 130/70; BP 178/88; PULSE 115; PULSE 73; RESP 18; TEMP 36.6; O2SAT 96; BMI 25.8
--- NOTE | 2022-02-12 17:44 | ED_ITS ---
HPI - Alcohol General Chief Complaint: ETOH/Substance Use Stated Complaint: etoh Time Seen by Provider: 02/12/22 17:43 Source: patient, EMS and old records reviewed Mode of arrival: EMS Limitations: no limitations History of Present Illness HPI narrative: 32 y/o male with history of alcohol use disorder, history of alcohol withdrawal August 2021 and history of alcohol withdrawal seizures in the past, HTN, CHF w / EF 35-45%, hx alcoholic hepatitis, depression with self harm behaviors who presents to the ER via EMS after he was found sleeping on the sidewalk. When he was woken up by PD, he was intoxicated and depressed. He states his girlfriend overdosed and in October. He has been drinking heavily whenever he gets sad thinking about her, vague if it is daily or not. Unable to quantify. He states he has been feeling like life is no longer worth living but denies any plan to kill himself. He cut his forearms a few years ago, no self harm recently. He lives home alone, he is afraid to call his father and tell him he is he. He wants help for his depression and his drinking. MD complaint: alcohol intoxication, alcohol dependence and desires rehab Last drink: Just prior to admission Chronic alcohol use: Yes Previous visits for alcohol intoxication: Yes Recent trauma: No Associated symptoms: depression and suicidality Treatments prior to arrival: none Related Data Home Medications Medication Instructions Recorded Confirmed escitalopram oxalate 10 mg tablet 1 tab PO DAILY 08/29/21 08/29/21 gabapentin 100 mg capsule 1 cap PO TID 08/29/21 08/29/21 hydroxyzine pamoate 50 mg capsule 1 cap PO TID 08/29/21 08/29/21 losartan 25 mg tablet 1 tab PO DAILY 08/29/21 08/29/21 metoprolol succinate 50 mg 1 tab PO DAILY 08/29/21 08/29/21 tablet,extended release 24 hr nicotine 21 mg/24 hr daily 1 patch TOPICAL DAILY 08/29/21 08/29/21 transdermal patch pantoprazole 40 mg tablet,delayed 1 tab PO BID 08/29/21 08/29/21 release Allergies Allergy/AdvReac Type Severity Reaction Status Date / Time oxycodone [OXYCODONE] Allergy Unknown RASH Verified 08/29/21 19:06 Seasonale Allergy Unknown Sneezing Uncoded 08/29/21 19:06 Review of Systems Review of Systems: Constitutional: No Fever, No Chills ENT/Mouth: No sore throat, No Rhinorrhea, No Swallowing Difficulty Eyes: No Eye Pain, No Swelling, No Redness Cardiovascular: No Chest Pain, No SOB, No Orthopnea, No Edema Respiratory: No Cough, No Sputum, No Wheezing, No dyspnea Gastrointestinal: No Nausea, No Vomiting, No Diarrhea, No abdominal Pain, No Hematochezia, No Melena Genitourinary: No Dysuria, No Urinary Frequency, No Hematuria Musculoskeletal: No joint pain, No Myalgias Skin: No Skin Lesions, No rash Neuro: No Weakness, No Numbness, No Dizziness, No Headache Psych: +Anxiety/Panic, + Depression, +SI, No HI, No AH, No VH Heme/Lymph: No Bruising, No Lymphadenopathy Endocrine: No Polyuria, No Polydipsia PMFSH Past Medical History Medical History Congestive cardiomyopathy Social History Social History Household Members: None Housing: Apartment Do you presently have visiting nurse or other home services: No Alcohol intake: current Alcohol intake frequency: 3 or more drinks per day Alcohol type: hard liquor Patient Tobacco Use Status: Current someday Tobacco user Substance Use Type: Marijuana Advance Directives: Yes Advance Directives on File: Yes Advance Directives Date on File: 08/30/21 service: No Current occupational status: unemployed Physical Exam ED Vital Signs: Vital Signs - 24 hr 02/12/22 17:35 Temperature 98 F Pulse Rate 115 H Respiratory Rate 18 Blood Pressure 178/88 H BMI result Body Mass Index 25.8 Appearance: Alert. Oriented X3. No acute distress. Smells of alcohol. Tearful. Eyes: Pupils equal, round and reactive to light. ENT: Pharynx normal. Neck: Normal inspection. Neck supple. CVS: Normal heart rate and rhythm. Pulses normal. Respiratory: No respiratory distress. Breath sounds normal. Abdomen: Soft and nontender. +BS x4 Skin: Skin warm and dry. Normal skin color. Normal skin turgor. No rashes. Extremities: No lower extremity edema. Left dorsal forearm with will healed linear scars consistent with prior cutting. Neuro: Oriented X 3. No motor deficit. No sensory deficit. Course Course Course Narrative: 32-year-old male with history of alcohol use disorder, depression, CHF, HTN who presents to the ER intoxicated and depressed with vague suicidal ideation. He is tearful and emotional on arrival. He is heart rates are in the 1 teens. He denies any other drug use, is unable to quantify how much alcohol he actually drinks. Unable to say if it is daily or not. Will get lab workup for medical clearance and have him evaluated by the life skills coach and possibly the crisis team given his vague suicidality. Will need to re-evaluate once he is clinically sober. ETOH level is pending. Reevaluation(s) Reevaluation #1: ETOH level 469. Labs otherwise unremarkable. Physician observation started at 7:38pm. Patient placed in physician observation because patient is sober re-evaluation. At the time observation was started patient's vital signs were stable. Patient is alert and oriented but intoxicated. Neuro exam is non-focal. CV: RRR and lungs are clear. Will continue to monitor. MDM - Alcohol Lab Data Result diagrams: 02/12/22 18:48 02/12/22 18:48 Labs: Lab Results 02/12/22 02/12/22 02/12/22 Range/Units 17:43 18:47 18:48 WBC 9.5 (4.8-10.8) X10*3/uL RBC 5.36 (4.60-5.80) X10*6/uL Hgb 16.2 (14.0-18.0) g/dl Hct 48.3 (42.0-52.0) % MCV 90.1 (80.0-98.0) fL MCH 30.2 (27.0-33.0) pg MCHC 33.5 (31.0-36.0) g/dl RDW 13.7 (11.0-16.0) % Plt Count 322 D (160-400) X10*3/uL MPV 8.7 L (9.4-12.4) fL Immature Gran % (Auto) 0.3 (0.0-0.4) % Neut % (Auto) 66.3 (45-73) % Lymph % (Auto) 25.2 (20-40) % Angelina % (Auto) 6.7 (2-11) % Eos % (Auto) 1.2 (0-4) % Baso % (Auto) 0.3 (0-2) % Lymph # (Auto) 2.4 (1.2-4.9) X10*3/uL Angelina # (Auto) 0.6 (0.1-1.2) X10*3/uL Eos # (Auto) 0.1 (0.0-0.4) X10*3/uL Baso # (Auto) 0.0 (0.0-0.2) X10*3/uL Abs Immat Gran (auto) 0.03 (0.00-0.03) X10*3/uL Absolute Neuts (auto) 6.3 (2.0-8.3) x10*3/uL Absolute Nucleated RBC 0.000 (0.0-0.012) X10*3/uL Nucleated RBC % (auto) 0.0 (0.0-0.2) /100WBC Sodium (135-145) mmol/L Potassium (3.3-5.1) mmol/L Chloride (96-108) mmol/L Carbon Dioxide (22-29) mmol/L Anion Gap (12-20) BUN (9-16) mg/dL Creatinine (0.5-1.4) mg/dL Estim Creat Clear Calc Estimated GFR Random Glucose (60-115) mg/dL Calcium (8.4-10.2) mg/dL Magnesium (1.6-2.6) mg/dL Total Bilirubin (0.0-1.0) mg/dL Direct Bilirubin (0.0-0.5) mg/dL AST (5-37) U/L ALT (0-40) U/L Alkaline Phosphatase (39-117) U/L Total Protein (6.5-8.0) g/dL Albumin (3.5-5.0) g/dL Ethyl Alcohol 469 H* mg/dL COVID-19 (NAT) Negative (Negative) COVID-19 Clin Com See Note 02/12/22 Range/Units 18:48 WBC (4.8-10.8) X10*3/uL RBC (4.60-5.80) X10*6/uL Hgb (14.0-18.0) g/dl Hct (42.0-52.0) % MCV (80.0-98.0) fL MCH (27.0-33.0) pg MCHC (31.0-36.0) g/dl RDW (11.0-16.0) % Plt Count (160-400) X10*3/uL MPV (9.4-12.4) fL Immature Gran % (Auto) (0.0-0.4) % Neut % (Auto) (45-73) % Lymph % (Auto) (20-40) % Angelina % (Auto) (2-11) % Eos % (Auto) (0-4) % Baso % (Auto) (0-2) % Lymph # (Auto) (1.2-4.9) X10*3/uL Angelina # (Auto) (0.1-1.2) X10*3/uL Eos # (Auto) (0.0-0.4) X10*3/uL Baso # (Auto) (0.0-0.2) X10*3/uL Abs Immat Gran (auto) (0.00-0.03) X10*3/uL Absolute Neuts (auto) (2.0-8.3) x10*3/uL Absolute Nucleated RBC (0.0-0.012) X10*3/uL Nucleated RBC % (auto) (0.0-0.2) /100WBC Sodium 146 H (135-145) mmol/L Potassium 3.8 (3.3-5.1) mmol/L Chloride 107 (96-108) mmol/L Carbon Dioxide 26 (22-29) mmol/L Anion Gap 17 (12-20) BUN 8 L (9-16) mg/dL Creatinine 1.11 (0.5-1.4) mg/dL Estim Creat Clear Calc 96.8 Estimated GFR > 60 Random Glucose 119 H (60-115) mg/dL Calcium 9.7 D (8.4-10.2) mg/dL Magnesium 2.2 (1.6-2.6) mg/dL Total Bilirubin 0.3 (0.0-1.0) mg/dL Direct Bilirubin < 0.2 (0.0-0.5) mg/dL AST 29 D (5-37) U/L ALT 27 (0-40) U/L Alkaline Phosphatase 49 (39-117) U/L Total Protein 8.3 H D (6.5-8.0) g/dL Albumin 4.7 D (3.5-5.0) g/dL Ethyl Alcohol mg/dL COVID-19 (NAT) (Negative) COVID-19 Clin Com Discharge Plan Discharge Clinical Impression: Alcoholic intoxication, Depression Patient Disposition: Still a Patient Prescriptions: No Action metoprolol succinate 50 mg tablet extended release 24 hr 1 tab PO DAILY 0RF hydroxyzine pamoate 50 mg capsule 1 cap PO TID 0RF pantoprazole 40 mg tablet,delayed release (DR/EC) 1 tab PO BID 0RF losartan 25 mg tablet 1 tab PO DAILY 0RF nicotine 21 mg/24 hr patch 24 hour 1 patch topical DAILY 0RF gabapentin 100 mg capsule 1 cap PO TID 0RF escitalopram oxalate 10 mg tablet 1 tab PO DAILY 0RF
[2022-02-12 18:52] LABS: MANUAL DIFF FLAG NO
[2022-02-12 18:58] LABS: Basophils Percent Auto 0.3 % (0-2); Eosinophils Absolute Auto 0.1 X10*3/uL (0.0-0.4); Eosinophils Percent Auto 1.2 % (0-4); Hematocrit 48.3 % (42.0-52.0); Hemoglobin 16.2 g/dl (14.0-18.0); Imm Gran Abs Auto 0.03 X10*3/uL (0.00-0.03); Imm Gran Pct Auto 0.3 % (0.0-0.4); Lymphocytes Absolute Auto 2.4 X10*3/uL (1.2-4.9); Lymphocytes Percent Auto 25.2 % (20-40); Mean Corpuscular HGB Conc 33.5 g/dl (31.0-36.0); Mean Corpuscular Hemoglobin 30.2 pg (27.0-33.0); Mean Corpuscular Volume 90.1 fL (80.0-98.0); Mean Platelet Volume 8.7 fL (9.4-12.4); Monocytes Absolute Auto 0.6 X10*3/uL (0.1-1.2); Monocytes Percent Auto 6.7 % (2-11); Neutrophils Absolute Auto 6.3 x10*3/uL (2.0-8.3); Neutrophils Percent Auto 66.3 % (45-73); Platelet Count 322 X10*3/uL (160-400); Red Blood Count 5.36 X10*6/uL (4.60-5.80); Red Cell Distribution Width 13.7 % (11.0-16.0); White Blood Count 9.5 X10*3/uL (4.8-10.8)
[2022-02-12 19:14] LABS: COVID-19 Test Negative (Negative); IDNOW Serial# 16C4AD1C
[2022-02-12 19:19] LABS: Ethanol 469 mg/dL
[2022-02-12 19:23] LABS: Alanine Aminotransferase 27 U/L (0-40); Albumin Level 4.7 g/dL (3.5-5.0); Alkaline Phosphatase 49 U/L (39-117); Anion Gap 17 (12-20); Aspartate Amino Transferase 29 U/L (5-37); Bilirubin Direct < 0.2 mg/dL (0.0-0.5); Bilirubin Total 0.3 mg/dL (0.0-1.0); Blood Urea Nitrogen 8 mg/dL (9-16); Calcium 9.7 mg/dL (8.4-10.2); Carbon Dioxide 26 mmol/L (22-29); Chloride 107 mmol/L (96-108); Creatinine Clr Calc Pharmacy 96.8; Estimated Glomerular Filt Rate > 60; Glucose Random 119 mg/dL (60-115); Magnesium 2.2 mg/dL (1.6-2.6); Potassium 3.8 mmol/L (3.3-5.1); Sodium 146 mmol/L (135-145); Total Protein 8.3 g/dL (6.5-8.0)
--- NOTE | 2022-02-12 21:18 | PC.NURSE ---
pt is constantly trying to leave. Pt ambultes around ed awaiting for possible discharge.
[2022-02-12] MEDS: LORazepam 1 MG TABLET PO (21:35)
== END 2022-02-12 22:51 ==
PROVIDERS: Physician Assistant; Emergency Provider Emergency Medicine Emergency Medical Services
DX: F10.229 Alcohol dependence with intoxication, unspecified (principal); Y90.8 Blood alcohol level of 240 mg/100 ml or more; F33.1 Major depressive disorder, recurrent, moderate; R45.851 Suicidal ideations; F17.200 Nicotine dependence, unspecified, uncomplicated; Z20.822 Contact with and (suspected) exposure to COVID-19; Z71.6 Tobacco abuse counseling; F12.90 Cannabis use, unspecified, uncomplicated; Z79.899 Other long term (current) drug therapy
CPT/HCPCS: 80048; 80076; 82077; 83735; 85025; 87635; 99283